=== PATIENT | male | born 1960 | race Caucasian/White ===

== ENCOUNTER 2016-02-17 16:23 | Emergency (ER) | payer SELFPAY ==
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
[2016-02-17 16:40] VITALS: PULSE 80; RESP 14; TEMP 98.4
[2016-02-17 16:42] VITALS: BP 133/89; O2SAT 94
== END 2016-02-17 16:42 | disposition home or self-care (01) ==
LOC: EDUNIT#
DX: S00.31XA Abrasion of nose, initial encounter (principal); F17.200 Nicotine dependence, unspecified, uncomplicated; Y08.89XA Assault by other specified means, initial encounter; Y93.89 Activity, other specified

== ENCOUNTER 2016-02-29 17:40 | Emergency (ER) | payer MEDICAID ==
[2016-02-29 17:47] VITALS: TEMP 97.9
--- NOTE | 2016-02-29 18:04 | EDPHY ---
H & P Time Seen by Provider: 02/29/16 17:49 HPI/ROS: CHIEF COMPLAINT: "my whole right side hurts HISTORY OF PRESENT ILLNESS: Patient is a 55-year-old male with a history of alcohol abuse who presents to the emergency department after fall. He states he fell onto his right side. Now complains of entire right-sided upper body discomfort. States if you do line from my middle everything to the right hurts. EMS reported kidney pain. Patient denies any flank discomfort at this time. No shortness of breath. No abdominal pain. No nausea or vomiting. Patient denies headache or neck pain. The patient does state he drank alcohol earlier today. REVIEW OF SYSTEMS: My complete review of systems is negative except as mentioned in the HPI. Past Medical/Surgical History: Alcohol abuse, chronic back pain Smoking Status: Current every day smoker Physical Exam: Vitals noted GENERAL: Well-appearing, in no acute distress, alert. HEAD: No evidence of trauma. EYES: PERRLA, EOMI, normal to inspection. ENT: Airway intact, no dental or oral injury, no malocclusion, no hemotympanum , normal external examination. NECK: The trachea is midline. There is no crepitus. The C-spine is nontender. C-collar in place. RESPIRATORY: Clear to auscultation bilaterally, no rales, rhonchi or wheezing. There is no crepitus or palpable rib fractures. CVS: Regular rate and rhythm, no rubs, murmurs, or gallops. Chest: The patient has mild right lateral chest wall tenderness palpation. There is no crepitus or deformity. ABDOMEN: Soft, nontender, nondistended, normal bowel sounds, no bruising or abrasions. Pelvis: Stable. No tenderness palpation. Hips full range of motion. BACK: Normal to inspection, no spinal tenderness, no spinal step off, no notable bruising or abrasions. SKIN: Normal color, warm, dry. No pallor or diaphoresis. EXTREMITIES: Right upper extremity: Mild tenderness palpation over the right deltoid. No scapular or clavicle tenderness. Patient has range of motion of his right shoulder. Neurovascular intact distally. Left upper extremity: Atraumatic. No visible signs of trauma. No tenderness palpation. Neurovascular intact distally. Right lower extremity: Atraumatic. No visible signs of trauma. No tenderness palpation. Neurovascular intact distally. Left lower extremity: Atraumatic. No visible signs of trauma. No tenderness palpation. Neurovascular intact distally. Atraumatic, neurovascularly intact distally in all extremities, pelvis is stable , hips with full range of motion, moves all extremities freely. NEURO/PSYCH: Alert and oriented x 3, GCS 15, normal mood and affect, normal motor sensory exam. Not significantly intoxicated appearing. Constitutional: Initial Vital Signs Temperature (C) 36.6 C 02/29/16 17:45 Heart Rate 82 02/29/16 17:45 Respiratory Rate 14 02/29/16 17:45 Blood Pressure 130/97 H 02/29/16 17:45 O2 Sat (%) 94 02/29/16 17:45 O2 Delivery Mode Room Air O2 (L/minute) 2 Allergies/Adverse Reactions: ARTIFICIAL ADRENALINE Allergy (Severe, Uncoded 02/29/16 17:45) SEIZURE Home Medications: Medication Instructions Recorded No Medications [NO HOME 1 e[place] [facility] [place]ICATIONS] Hydrocodone/APAP 5/325 [[place] 1 - 2 each PO Q6 PRN #20 tab 04/27/15 5/325] Hydrocodone/APAP 5/325 [[place] 1 - 2 tab PO Q4 #9 tab 02/29/16 5/325 (RX)] Medical Decision Making ED Course/Re-evaluation: In the emergency department I discussed possible etiologies with the patient. A right shoulder x-ray and chest x-ray were ordered. I did not feel the patient needs CT imaging of his kidney. He denies any flank pain or discomfort. No abdominal pain. No nausea or vomiting. Chest x-ray: The patient has multiple right-sided rib fractures. Please refer the dictated report by the radiologist. I reviewed the images. No pneumothorax or hemothorax. Right shoulder x-ray: Normal. Please refer the dictated report by the radiologist. I personally reviewed the images. Discussed the result with the patient. I answered all his questions. Patient was given instruction on incentive spirometry use. Patient ambulated the bathroom well. He was not unsteady. His pain was controlled. 2100: The patient is doing well. No respiratory distress. Able to ambulate well. Patient was given a prescription for Vicodin. He will be discharged to the [facility]. Differential Diagnosis: My differential includes but is not limited to shoulder contusion, shoulder fracture, shoulder dislocation, rib fracture, chest wall contusion, hemothorax, pneumothorax, renal hematoma - Data Points Medications Given: Discontinued Medications Chlordiazepoxide (Librium 25 Mg Prepack#6) 1 btl TAKEHOME EDNOW ONE Stop: 02/29/16 21:05 Last Admin: 02/29/16 21:08 Dose: 1 btl Departure - Departure Disposition: Home, Routine, Self-Care Clinical Impression: Chest wall pain Chest wall contusion Qualifiers: Encounter type: initial encounter Laterality: right Qualifier Code: (S20.211A) Contusion of right front wall of thorax, initial encounter Rib fracture Qualifiers: Encounter type: initial encounter Rib fracture type: multiple ribs Fracture type: closed Laterality: right Qualifier Code: (S22.41XA) Multiple fractures of ribs, right side, initial encounter for closed fracture Condition: Good Instructions: Chlordiazepoxide/Clidinium (By mouth), Rib Fracture (ED) Additional Instructions: You have multiple rib fractures on the right. Use your incentive spirometer. Take your pain medication as directed. Return with worsening symptoms. Referrals: [facility] [Outside] - As per Instructions Prescriptions: Hydrocodone/APAP 5/325 [[place] 5/325 (RX)] 1 - 2 tab PO Q4 #9 tab
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
[2016-02-29] MEDS ORDERED: CHLORDIAZEPOXIDE 25MG PREPK#6 BTL TAKEHOME ONE (21:04)
[2016-02-29 21:06] VITALS: PULSE 78; RESP 16
[2016-02-29 21:16] VITALS: BP 134/75; O2SAT 94
== END 2016-02-29 21:16 | disposition home or self-care (01) ==
LOC: EDUNIT#
DX: S22.41XA Multiple fractures of ribs, right side, initial encounter for closed fracture (principal); S20.211A Contusion of right front wall of thorax, initial encounter; F17.200 Nicotine dependence, unspecified, uncomplicated; W19.XXXA Unspecified fall, initial encounter

== ENCOUNTER 2016-03-03 22:13 | Emergency (ER) | payer MEDICAID ==
[2016-03-03] MEDS ORDERED: IBUPROFEN 600 MG TAB PO ONE (22:31)
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
[2016-03-03 23:20] VITALS: BP 154/97; PULSE 92; RESP 18; TEMP 97.5; O2SAT 94
== END 2016-03-03 23:55 | disposition home or self-care (01) ==
LOC: EDUNIT#
DX: S90.31XA Contusion of right foot, initial encounter (principal); I10 Essential (primary) hypertension; F17.200 Nicotine dependence, unspecified, uncomplicated; V03.10XA Pedestrian on foot injured in collision with car, pick-up truck or van in traffic accident, initial encounter; Y92.410 Unspecified street and highway as the place of occurrence of the external cause
CPT/HCPCS: L4386

== ENCOUNTER 2017-04-22 19:15 | Emergency (ER) | payer MEDICAID ==
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
[2017-04-22 19:24] VITALS: BP 143/110; PULSE 110; RESP 18; TEMP 98.6; O2SAT 94
[2017-04-22] MEDS ORDERED: CHLORDIAZEPOXIDE 25MG PREPK#6 BTL TAKEHOME ONE (19:30)
== END 2017-04-22 19:48 | disposition home or self-care (01) ==
LOC: EDUNIT#
DX: F10.920 Alcohol use, unspecified with intoxication, uncomplicated (principal); I10 Essential (primary) hypertension; F17.200 Nicotine dependence, unspecified, uncomplicated

== ENCOUNTER 2017-04-25 20:43 | Emergency (ER) | payer MEDICAID ==
--- NOTE | 2017-04-25 20:53 | EDPHY ---
H & P Time Seen by Provider: 04/25/17 20:43 HPI/ROS: CHIEF COMPLAINT: Fall HISTORY OF PRESENT ILLNESS: Patient is a 56-year-old male who presents emergency department after slipping and falling on his left hip. He states he landed directly on his left hip. He has severe left hip pain. He is able to stand but it causes him discomfort. No numbness or tingling. Patient denies striking his head. He did not lose consciousness. No neck or back pain. The patient states he fell 3 days ago and was diagnosed with a right foot fracture. Is currently wearing a Steve boot. REVIEW OF SYSTEMS: My complete review of systems is negative except as mentioned in the HPI. Past Medical/Surgical History: Past medical history: Denies Past surgical history: Denies Social history: The patient drinks alcohol. He is homeless. Smoking Status: Current every day smoker Physical Exam: Vitals noted GENERAL: Well-appearing, in no acute distress, alert. HEENT: Eyes normal to inspection, normal pharynx, no signs of dehydration. No head trauma. NECK: [No thyromegaly, no lymphadenopathy, supple. No spinal tenderness RESPIRATORY: Clear to auscultation bilaterally, no rales, rhonchi or wheezing. CVS: Regular rate and rhythm, no rubs, murmurs, or gallops. ABDOMEN: Soft, nontender, nondistended, no organomegaly. BACK: Normal to inspection, no CVA tenderness. SKIN: Normal color, no rash, warm, dry. No pallor. EXTREMITIES: Left hip tenderness palpation. No deformity. No pedal edema. Legs are equal length. He has no discomfort with flexion, extension or rotation of his hip. No calf tenderness, no Homans sign or cords, no joint swelling. NEURO/PSYCH: Alert and oriented x3, normal mood and affect, normal motor sensory exam. No obvious cranial nerve deficit. Constitutional: Initial Vital Signs Temperature (C) 36.7 C 04/25/17 20:52 Heart Rate 85 04/25/17 20:52 Respiratory Rate 16 04/25/17 20:52 Blood Pressure 173/108 H 04/25/17 20:52 O2 Sat (%) 95 04/25/17 20:52 O2 Delivery Mode Room Air Allergies/Adverse Reactions: ARTIFICIAL ADRENALINE Allergy (Severe, Uncoded 04/22/17 19:23) SEIZURE Home Medications: Medication Instructions Recorded NK [No Known Home Meds] 04/22/17 Medical Decision Making - Diagnostics Imaging Results: Imaging Impressions Hip X-Ray 04/25/17 20:55 Impression: No acute abnormality seen about the pelvis with attention left hip. ED Course/Re-evaluation: In the emergency department I discussed possible etiologies with the patient. I answered all his questions. An x-ray of his left hip was ordered. Left hip x-ray: Please refer the dictated report. No acute disease noted. I discussed the results with the patient. I answered all his questions. He was given warning. Differential Diagnosis: My differential includes but is not limited to fracture, dislocation, contusion , sprain, strain Departure - Departure Disposition: Home, Routine, Self-Care Clinical Impression: Contusion of hip, left Qualifiers: Encounter type: initial encounter Qualified Code(s): S70.02XA - Contusion of left hip, initial encounter Condition: Good Instructions: Contusion in Adults (ED), Hip Sprain (ED) Additional Instructions: X-ray of your hip was negative. Return with worsening symptoms or concerns. Referrals: [facility],. [Clinic] - 3-4 days, if not improved
[2017-04-25] MEDS ORDERED: ACETAMINOPHEN 325 MG TAB ONE (22:28)
[2017-04-25 22:48] VITALS: BP 168/100; PULSE 87; RESP 20; TEMP 98.2; O2SAT 93
== END 2017-04-25 22:35 | disposition home or self-care (01) ==
LOC: EDUNIT#
DX: S70.02XA Contusion of left hip, initial encounter (principal); F17.200 Nicotine dependence, unspecified, uncomplicated; W01.0XXA Fall on same level from slipping, tripping and stumbling without subsequent striking against object, initial encounter

== ENCOUNTER 2017-05-02 10:12 | Emergency (ER) | payer MEDICAID ==
--- NOTE | 2017-05-02 10:23 | EDPHY ---
H & P Time Seen by Provider: 05/02/17 10:14 HPI/ROS: Chief Complaint: Fall, back pain, rib pain HPI: 56-year-old homeless male was drinking vodka this morning when he fell backwards down several stairs, landing on his left back. Patient is complaining of left-sided back and rib pain. He did not hit his head. No loss of consciousness. He was up and ambulating without assistance. Is currently complaining of pain in his left side. He is able to take full breaths. ROS: 10 point Review of Systems is negative except as noted in the HPI. PMH: Denies Social History: Positive smoking, daily heavy alcohol, homeless Family History: non-contributory Physical Exam: Gen: Awake, Alert, Airway Intact HEENT: Head: Atraumatic Eyes: PERRLA, EOMI Nose: No epistaxis Mouth: Normal dentition, Airway patent Face: No deformity Neck: non-tender, no stepoff, Full ROM without pain Chest: Mild left posterior and anterior axillary line tenderness without step- offs or deformities, lungs CTA Heart: normal heart tones Abd: soft, non-tender, atraumatic Pelvis: non-tender, stable to AP and Lateral compression Back: atraumatic, no midline tenderness Ext: atramatic, full ROM Skin: no rash Neuro: CN II-XII intact, Strength 5/5 in all extremities, sensation intact in all extremities - Personal History Tetanus Vaccine Date: <10 yrs - Medical/Surgical History Hx Asthma: No Hx Chronic Respiratory Disease: No Hx Diabetes: No Hx Cardiac Disease: No Hx Renal Disease: No Hx Cirrhosis: No Hx Alcoholism: No Hx HIV/AIDS: No Hx Splenectomy or Spleen Trauma: No Other PMH: chronic back pain, HTN - Social History Smoking Status: Current every day smoker Constitutional: Initial Vital Signs Temperature (C) 36.9 C 05/02/17 10:21 Heart Rate 80 05/02/17 10:21 Respiratory Rate 16 05/02/17 10:21 Blood Pressure 143/115 H 05/02/17 10:21 O2 Sat (%) 92 05/02/17 10:21 O2 Delivery Mode Room Air Allergies/Adverse Reactions: ARTIFICIAL ADRENALINE Allergy (Severe, Uncoded 05/02/17 10:20) SEIZURE Home Medications: Medication Instructions Recorded NK [No Known Home Meds] 03/15/18 Medical Decision Making - Diagnostics Imaging Results: Imaging Impressions Chest X-Ray 05/02/17 10:18 Impression: 1. Acute left fourth, fifth, and sixth rib fractures. 2. Hypoventilation. No pneumothorax. Imaging: I viewed and interpreted images myself ED Course/Re-evaluation: 56-year-old homeless male with rib fractures. Patient is saturating well. Pain is controlled. He has been seen by case management. They have arranged for [facility]. Will discharge with ibuprofen. Patient has been encouraged to discontinue alcohol use which I think is unfortunately unlikely. Will follow up at [facility], return for any concerns. - Data Points Medications Given: Discontinued Medications Ketorolac Tromethamine (Toradol) 15 mg IVP EDNOW ONE Stop: 05/02/17 11:10 Last Admin: 05/02/17 11:29 Dose: Not Given Ketorolac Tromethamine (Toradol) 30 mg IM EDNOW ONE Stop: 05/02/17 11:30 Last Admin: 05/02/17 11:31 Dose: 30 mg Departure - Departure Disposition: Home, Routine, Self-Care Clinical Impression: Rib fractures, Alcohol intoxication Condition: Good Instructions: Rib Fracture (ED), Alcohol Intoxication (ED) Additional Instructions: Follow up at the [facility] in 2-3 days for further evaluation. You may take ibuprofen, 400 mg every 6-8 hours as needed for pain. Return to the emergency department for increasing pain, shortness of breath, productive cough, fevers, chills, or any other concerns. Referrals: [facility],. [Clinic] - As per Instructions
[2017-05-02] MEDS ORDERED: KETOROLAC 15 MG/1 ML SDV IVP ONE (11:09)
[2017-05-02] MEDS ORDERED: KETOROLAC 30 MG/1 ML SDV IM ONE (11:29)
[2017-05-02 12:26] VITALS: BP 147/92; PULSE 93; RESP 18; TEMP 98.1; O2SAT 93
--- NOTE | 2017-05-02 14:07 | ASMTLACE ---
CAROLE Acuity / Level of Answers: No Care: Did the patient have an inpatient admission? Comorbidities - select Answers: History of falls all that apply # of Emergency department Answers: 3-4 visits in the last 6 months Social determinants Answers: History of substance abuse (ETOH, street drugs, prescription drugs, etc.) Homelessness (street, halfway) Lack of community resources and/or lack of social support (no pcp, lives alone, transportation, elissa d) Score: 16 Date Signed: 05/02/2017 02:06 PM Electronically Signed By:Jolene Beauchamp RN
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
--- NOTE | 2017-05-02 17:36 | ASMTCMCOM ---
CM Note CM Note Notes: Received a call back from [facility] ([phone]) and apparently patient is suspended from staying at the residential until he follows up with the [facility] Director. Staff were able to connect with patient today and schedule him an appt with the Director this Wed. 05/05. Per staff, as long as patient attends the meeting, patient can then start being allowed to stay at the residential again. [facility] provided pt with a bus pass in order to get to the [facility] this evening. CM to follow up with [facility] tomorrow. Date Signed: 05/02/2017 05:36 PM Electronically Signed By:Jolene Beauchamp RN
== END 2017-05-02 13:12 | disposition home or self-care (01) ==
LOC: EDUNIT#
DX: S22.42XA Multiple fractures of ribs, left side, initial encounter for closed fracture (principal); F10.129 Alcohol abuse with intoxication, unspecified; I10 Essential (primary) hypertension; F17.200 Nicotine dependence, unspecified, uncomplicated; W10.9XXA Fall (on) (from) unspecified stairs and steps, initial encounter; Y99.8 Other external cause status; Y93.89 Activity, other specified
CPT/HCPCS: J1885

== ENCOUNTER 2017-05-03 09:59 | Emergency (ER) | payer MEDICAID ==
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
[2017-05-03 11:34] VITALS: BP 146/96; PULSE 96; RESP 18; TEMP 98.4; O2SAT 94
--- NOTE | 2017-05-03 15:39 | ASMTCMCOM ---
CM Note CM Note Notes: Pt presented to the ED after a bystander called 911 because they saw him lying near the [place]. Patient was sleeping on the ground with a sleeping bag. Spoke with patient and we discussed how he is suspended from the [facility] until he completes an appointment with the [facility] Director, which is scheduled for 05/05/17 at 8:00 or 8:30am. Pt has completed Coordinated Entry and was referred to [facility]. When asked why he didn't use the bus pass to get to the [facility] to [facility] last night (bus pass was provided to him from [facility] last night after they realized his suspension), pt stated "they said it wasn't open." Pt also stated he drank alcohol last night. Pt has no new complaints during this ED visit. When offered a pair of extra socks, patient said he has an extra pair, along with another pair of pants, in his backpack. Printed out the address, a map, and bus trip plans for patient to get to the [facility] that is located at [facility]. We also discussed at length the importance of him staying indoors [facility] and tomorrow night ([facility]) since weather is expected to be inclement and he will not be able to stay at [facility] until Wed night at the earliest (if he makes his appt). Called [facility] and spoke christian/Jacklyn Valdez ([phone]). Scheduled an appointment for tomorrow Wednesday05/04/17 with an arrival time of 12pm. This CM and the pt discussed at length and on multiple occasions, when and where the appt is and how important is for him to go. Patient verbally expresses understanding of importance, time and location of appt. Patient provided print-outs of maps, bus trip options, etc. This CM also asked to speak to Ilsa Homeless Outreach RN at but Ilsa is on vacation and no one is available covering for her. Jacklyn Valdez recommended reaching out to IVETTE Hoover Tanning Wheel Operator at [facility] ([phone]); spoke w/ Sneha and she said since patient hasn't been seen by since 2010 and he has an appt tomorrow with there is nothing additional she can provide at this time but if PC sees pt tomorrow and thinks he would be a better fit at [facility] ([facility]) then they will refer him at that time. Spoke with Gin with [facility] and asked that patient be screened for Medicaid since patient said he doesn't have it. Gin said pt has active Medicaid. This CM then called [facility] to see if patient is eligible for a Medicaid cab. [facility] staff said patient needs to have a "Medical Certification of Transportation Services" completed before he is able to schedule rides for scheduled appointments (pt was explained this process and provided the [facility] # to call in the future). This form can be completed by his PCP at [facility]. As for today, [facility] was able to authorize the cab since the cab would be for discharge transport. Pt requested to discharge cab take him to [facility]. [facility] authorized this drop off location (CONF# [id number]). Pt provided a bus pass (pt originally requested only a bus pass) so he can get to the [facility] this evening. Pt was able to get himself dressed. Pt still has [place] boot on right foot (for foot fracture re:04/22/17 ED visit) and crutches. Patient is able ambulate well with crutches. Patient asked for assistance with rolling up his sleeping bag and putting it and the backpack into the cab. When asked how he is going to manage it when he gets to the library, etc. pt stated "I'll figure out. Don't worry I've been doing this for awhile." When asked how patient plans on getting to and from [facility] and [facility] tomorrow, pt also stated "I'll make it happen. I'll figure it out." CM available for further assistance. Date Signed: 05/03/2017 03:38 PM Electronically Signed By:Jolene Beauchamp RN
--- NOTE | 2017-05-03 15:41 | ASMTLACE ---
CAROLE Acuity / Level of Answers: No Care: Did the patient have an inpatient admission? Comorbidities - select Answers: History of falls all that apply # of Emergency department Answers: 3-4 visits in the last 6 months Social determinants Answers: History of substance abuse (ETOH, street drugs, prescription drugs, etc.) Homelessness (street, senior living) Lack of community resources and/or lack of social support (no pcp, lives alone, transportation, elissa d) Score: 16 Date Signed: 05/03/2017 03:40 PM Electronically Signed By:Jolene Beauchamp RN
--- NOTE | 2017-05-03 15:44 | ASDISCHSUM ---
Discharge Information Plan Status:Homeless/[facility] Medically Cleared to Leave: Discharge Date:05/03/2017 11:35 AM CM D/C Disposition:Streets (Homeless) ADT D/C Disposition:Home, Routine, Self-Care Projected Discharge Date:05/03/2017 11:35 AM Transportation at D/C:Medicaid Transportation Discharge Delay Reason: Follow-Up Date:05/03/2017 11:35 AM Discharge Slot: Final Diagnosis: Placement Information Patient Contact Information Contact Name:JESSE Relationship: Address: Home Phone: Work Phone: City: Alternate Phone: State/Zip Code: Email: Financial Information Financial Class:Medicaid Primary Plan Desc:MEDICAID HEALTH FIRST [employer]IB [place] Primary Plan Number:[id number] Secondary Plan Desc: Secondary Plan Number: Assessment Information [facility] CM Progress Note CM Note CM Note Notes: Pt presented to the ED after a bystander called 911 because they saw him lying near the [place]. Patient was sleeping on the ground with a sleeping bag. Spoke with patient and we discussed how he is suspended from the [facility] until he completes an appointment with the [facility] Director, which is scheduled for 05/05/17 at 8:00 or 8:30am. Pt has completed Coordinated Entry and was referred to [facility]. When asked why he didn't use the bus pass to get to the [facility] last night (bus pass was provided to him from [facility] last night after they realized his suspension), pt stated "they said it wasn't open." Pt also stated he drank alcohol last night. Pt has no new complaints during this ED visit. When offered a pair of extra socks, patient said he has an extra pair, along with another pair of pants, in his backpack. Printed out the address, a map, and bus trip plans for patient to get to the [facility] that is located at [facility]. We also discussed at length the importance of him staying indoors [facility] and tomorrow night ([facility]) since weather is expected to be inclement and he will not be able to stay at [facility] until Wed night at the earliest (if he makes his appt). Called [facility] and spoke w/Jacklyn Valdez ([phone]). Scheduled an appointment for tomorrow Wednesday05/04/17 with an arrival time of 12pm. This CM and the pt discussed at length and on multiple occasions, when and where the appt is and how important is for him to go. Patient verbally expresses understanding of importance, time and location of appt. Patient provided print-outs of maps, bus trip options, etc. This CM also asked to speak to Ilsa Homeless Outreach RN at but Ilsa is on vacation and no one is available covering for her. Jacklyn Valdez recommended reaching out to Sneha RN Agriculturist at [facility] ([phone]); spoke w/ Sneha and she said since patient hasn't been seen by since 2010 and he has an appt tomorrow with there is nothing additional she can provide at this time but if sees pt tomorrow and thinks he would be a better fit at [facility] ([facility]) then they will refer him at that time. Spoke with Gin with [facility] and asked that patient be screened for Medicaid since patient said he doesn't have it. Gin said pt has active Medicaid. This CM then called [facility] to see if patient is eligible for a Medicaid cab. [facility] staff said patient needs to have a "Medical Certification of Transportation Services" completed before he is able to schedule rides for scheduled appointments (pt was explained this process and provided the [facility] # to call in the future). This form can be completed by his PCP at [facility]. As for today, [facility] was able to authorize the cab since the cab would be for discharge transport. Pt requested to discharge cab take him to [facility]. [facility] authorized this drop off location (CONF# [id number]). Pt provided a bus pass (pt originally requested only a bus pass) so he can get to the [facility] this evening. Pt was able to get himself dressed. Pt still has [place] boot on right foot (for foot fracture re:04/22/17 ED visit) and crutches. Patient is able ambulate well with crutches. Patient asked for assistance with rolling up his sleeping bag and putting it and the backpack into the cab. When asked how he is going to manage it when he gets to the library, etc. pt stated "I'll figure out. Don't worry I've been doing this for awhile." When asked how patient plans on getting to and from [facility] and [facility] tomorrow, pt also stated "I'll make it happen. I'll figure it out." CM available for further assistance. Date Signed: 05/03/2017 03:38 PM Electronically Signed By:Jolene Beauchamp RN LACE LACE Acuity / Level of Answers: No Care: Did the patient have an inpatient admission? Comorbidities - select Answers: History of falls all that apply # of Emergency department Answers: 3-4 visits in the last 6 months Social determinants Answers: History of substance abuse (ETOH, street drugs, prescription drugs, etc.) Homelessness (street, intermediate) Lack of community resources and/or lack of social support (no pcp, lives alone, transportation, elissa d) Score: 16 Date Signed: 05/03/2017 03:40 PM Electronically Signed By:Jolene Beauchamp RN Intervention Information Intervention Type:Health Clinic Date of Service:05/03/2017 03:40 PM Patient Type:Emergency Room Staff Member:IVETTE Beauchamp [place] Hours:0.5 Discipline:Vocal Teacher Severity: Comment:[facility] appt Intervention Type:Transportation Date of Service:05/03/2017 03:40 PM Patient Type:Emergency Room Staff Member:IVETTE Beauchamp [place] Hours:0.5 Discipline:Vocal Teacher Severity: Comment:Medicaid cab arranged Intervention Type:Bus Pass Date of Service:05/03/2017 03:40 PM Patient Type:Emergency Room Staff Member:IVETTE Beauchamp [place] Hours:0.25 Discipline:Vocal Teacher Severity: Comment:for pt to use to get to [facility] tonight Intervention Type:Community Resources Date of Service:05/03/2017 03:40 PM Patient Type:Emergency Room Staff Member:IVETTE Beauchamp [place] Hours:0.5 Discipline:Vocal Teacher Severity: Comment:Various resource lists given and expla ined Intervention Type:Financial Counseling Date of Service:05/03/2017 03:40 PM Patient Type:Emergency Room Staff Member:IVETTE Beauchamp [place] Hours:0.25 Discipline:Vocal Teacher Severity: Comment:[employer] consult for Medicaid screening Intervention Type:Substance Abuse Treatment Date of Service:05/03/2017 03:40 PM Patient Type:Emergency Room Staff Member:IVETTE Beauchamp [place] Hours:0.25 Discipline:Vocal Teacher Severity: Comment:discussed ETOH use and reiterated opti ons for treatment
--- NOTE | 2017-05-04 19:46 | ASMTCMCOM ---
CM Note CM Note Notes: 05/04/17: Followed up with [facility] today and patient did not make it to his 12pm appt. Confirmed that patient information and situation has been passed along to Homeless Outreach RN Ilsa in case patient does start staying at the group home again. (See previous note for info). Called [facility] ([phone]) to see if they came into contact with patient at the [facility] last night. Spoke with Bela, a staff member there and also at [facility], and she states she is very familiar with patient. To her knowledge, [facility] doesn't keep track of who stays at the [facility] nightly so they aren't sure if he stayed there last night. Bela also wanted to make sure we knew that pt is not simply "suspended" from [facility], he actually received a Halfway Ban almost 10 years ago and so in order for him to possible stay at [facility] (which he was referred to through [facility]) he will have to attend a readmission interview with [facility]'s Director, Riley Guerra. Pt said he has an appt with him tomorrow morning. Followup with [facility] to see if patient made it to that appt and is [facility] approved for him to start staying there again. Otherwise, patient can stay at [facility] locations ONLY when [facility] criteria is met. This CM also reached out to Joselin Allison RN with [facility] ([phone]) to see if there were any other options for reaching patient out in the community. Joselin to get back to CM after looking into it further. If/When patient returns contact [facility] to see if pt can stay there. Contact Joselin with [facility] to see if she has any other options if patient enrolls in their services. See if has a day-of open appt and if so, schedule it and Medicaid cab pt directly to appt. Date Signed: 05/04/2017 07:46 PM Electronically Signed By:Jolene Beauchamp RN
== END 2017-05-03 11:35 | disposition home or self-care (01) ==
LOC: EDUNIT#
DX: S22.49XD Multiple fractures of ribs, unspecified side, subsequent encounter for fracture with routine healing (principal); F17.200 Nicotine dependence, unspecified, uncomplicated; I10 Essential (primary) hypertension; Z71.6 Tobacco abuse counseling; X58.XXXD Exposure to other specified factors, subsequent encounter

== ENCOUNTER 2017-05-16 00:05 | Emergency (ER) | payer MEDICAID ==
--- NOTE | 2017-05-16 00:32 | EDPHY ---
General Time Seen by Provider: 05/16/17 00:25 Narrative: CHIEF COMPLAINT: Left rib pain, fall HISTORY OF PRESENT ILLNESS: Patient presents with complaints of left rib pain status post fall. He said an hour and a half ago he slipped on the ice because of his crutches. He states he landed on his left side on the concrete. This is where he had recent rib fractures. Complains of severe pain, but he is not taking the pain medication he has on him. He denies head strike or loss of consciousness. No headache. No neck pain. No generalized chest pain. No back, abdominal or extremity injuries. He has a right ankle fracture in a [place] boot was not injury from the fall. No other associated complaints or modifying factors. REVIEW OF SYSTEMS: Ten systems reviewed and are negative unless otherwise noted in the HPI PCP: [facility] SPECIALISTS: None PAST MEDICAL HISTORY: Recent rib fractures with atelectasis versus pneumonia, chronic back pain, hypertension, right ankle fracture PAST SURGICAL HISTORY: No recent surgeries SOCIAL HISTORY: Homeless. Occasional cigarette use. Occasional alcohol use. Occasional marijuana use. Does not work FAMILY HISTORY: Noncontributory EXAMINATION General Appearance: Alert, no distress, unkempt Head: normocephalic, atraumatic Eyes: Pupils equal and round, no conjunctival pallor or injection ENT, Mouth: Mucous membranes moist. Airway widely patent Neck: Normal inspection, supple, non-tender. No crepitus or deformity Respiratory: Lungs are clear to auscultation. No wheezing rhonchi or crackles. There is splinting with inspiration. No paradoxical movements of the chest. Cardiovascular: Regular rate and rhythm. No murmur Gastrointestinal: Abdomen is soft and nontender Back: non-tender, no bony abnormalities Neurological: GCS 15 A&O, nonfocal, normal gait Skin: Warm and dry, no rash. No petechiae or purpura. No ecchymosis, laceration or puncture over the area of injury. Extremities: Right ankle is in a [place] boot any asked me to leave this in place. Range of motion of extremities symmetric with exception of right ankle not tested. Psychiatric: Mood and affect normal DIFFERENTIAL DIAGNOSES: Including but not limited to rib fracture, rib contusion, pneumothorax, hemothorax, sternal fracture, pulmonary contusion MDM: 12:40 a.m. Reported mechanical fall with left-sided blunt trauma rib pain. No head or neck injury or pain. No abdominal pain. His vital signs are within normal limits. He has a subacute right ankle fracture that was not aggravated. He has a complicated history with recent admission to this hospital for multiple rib fractures on the left side. He is in no acute distress. He is not taking the pain medications that he has in his bag was prescribed 2 days ago. Chest x- ray is pending. 1:10 a.m. Chest x-ray reviewed with Dr. Gallagher. Rib fractures present with no pneumothorax appreciated. Poor inspiratory effort 1:15 a.m. I have re-evaluated the patient. He was not particularly reassured by his lack of acute findings on the chest x-ray. We discussed that he should be taking his pain medication as prescribed by previous physician should he have pain. He has not taking any but will not tell me why. He says that he does still have the pain medication. We discussed [facility] as he was previously instructed to do so. We discussed orthopedic follow-up for his right ankle fracture. We discussed ED precautions. He is discharged in stable condition. SUPERVISION: Patient was independently examined, but I discussed the case with my secondary supervising physician Dr. Gallagher - History Smoking Status: Current every day smoker - Objective Vital Signs: Initial Vital Signs Temperature (C) 98.4 F 05/16/17 00:11 Heart Rate 80 05/16/17 00:11 Respiratory Rate 16 05/16/17 00:11 Blood Pressure 152/99 H 05/16/17 00:11 O2 Sat (%) 92 05/16/17 00:11 O2 Delivery Mode Room Air Allergies/Adverse Reactions: ARTIFICIAL ADRENALINE Allergy (Severe, Uncoded 05/05/17 06:51) SEIZURE Home Medications: Medication Instructions Recorded Ondansetron Odt [Zofran Odt 4 mg 4 mg PO Q4HRS PRN #7 tab 05/14/17 (*)] oxyCODONE IR [Oxycodone Ir (*)] 5 - 10 mg PO Q6 PRN #50 tab 05/14/17 Departure - Departure Disposition: Home, Routine, Self-Care Clinical Impression: Contusion of rib on left side Qualifiers: Encounter type: initial encounter Qualified Code(s): S20.212A - Contusion of left front wall of thorax, initial encounter Ribs, multiple fractures Qualifiers: Encounter type: subsequent encounter Fracture type: closed Laterality: left Fracture healing: with routine healing Qualified Code(s): S22.42XD - Multiple fractures of ribs, left side, subsequent encounter for fracture with routine healing Condition: Good Instructions: Rib Fracture (ED), Rib Contusion (ED) Additional Instructions: 1. Continue taking your previous oxycodone prescription as prescribed 2. You need to contact your primary care physician at [facility] for outpatient follow-up 3. You need to contact your previous orthopedist for management of the right ankle fractures 4. ED precautions for worsening pain, fever or difficulty breathing Referrals: [facility],. [Clinic] - As per Instructions
[2017-05-16 01:24] VITALS: BP 126/80
== END 2017-05-16 01:26 | disposition home or self-care (01) ==
LOC: EDUNIT#
DX: S20.212A Contusion of left front wall of thorax, initial encounter (principal); S22.42XD Multiple fractures of ribs, left side, subsequent encounter for fracture with routine healing; F17.210 Nicotine dependence, cigarettes, uncomplicated; W00.0XXA Fall on same level due to ice and snow, initial encounter

== ENCOUNTER 2017-07-22 19:29 | Emergency (ER) | payer MEDICAID ==
--- NOTE | 2017-07-22 19:46 | EDPHY ---
H & P Source: Patient Exam Limitations: No limitations - Personal History Tetanus Vaccine Date: <10 yrs - Medical/Surgical History Hx Asthma: No Hx Chronic Respiratory Disease: No Hx Diabetes: No Hx Cardiac Disease: No Hx Renal Disease: No Hx Cirrhosis: No Hx Alcoholism: No Hx HIV/AIDS: No Hx Splenectomy or Spleen Trauma: No Other PMH: chronic back pain, HTN, rib and r ankle fx 04/2017 - Social History Smoking Status: Current every day smoker Time Seen by Provider: 07/22/17 19:40 HPI/ROS: HPI: This is a 57-year-old male who presents with Chief Complaint: ETOH, R leg pain (previous injury) Location: Right lower leg Quality: Pain Duration: 30 min to 1 hr prior to arrival Signs and Symptoms: No bleeding, no radiation, no numbness, no weakness, no tingling, no incontinence, no decreased range of motion, no swelling, + pain, no fever Timing: Acute Severity: Moderate Context: Patient reports that he accidentally fell down this afternoon and felt a popping sensation in his right lower leg. He is currently wearing a walking boot as he sustained a fracture he said several weeks ago. He reports that he had x-rays performed at [facility]. He reports that he is ambulatory without any deficits. He does admit to drinking alcohol today. Denies LOC/head injury/neck pain/dizziness/nausea/vomiting/amnesia. Denies any paresthesias, decreased range of motion. Modifying Factors: None Comment: ROS: see HPI Constitutional: No fever, no chills, no weight loss Eyes: No blurred vision Respiratory: No shortness of breath, no cough Cardiovascular: No chest pain Gastrointestinal: No nausea, no vomiting no diarrhea Genitourinary: No dysuria Extremities: No myalgias Neurologic: No weakness, no numbness Skin: No rashes Hematologic: No bruising, no bleeding MEDICAL/SURGICAL/SOCIAL HISTORY: Medical history: chronic back pain, HTN, rib and right ankle fx 04/2017, alcoholism Surgical history: Denies Social history: Homeless. Current every day smoker. CONSTITUTIONAL: Elderly intoxicated middle-aged male who appears younger than stated age, awake and alert, no obvious distress HEENT: Atraumatic and normocephalic. NECK: supple, no midline tenderness, flexion 45 degrees, extension 45 degrees, right and left lateral flexion 45 degrees. No meningismus. Cardiovascular: Normal S1/S2, regular rate, regular rhythm, without murmur rub or gallop. PULMONARY/CHEST: Symmetrical and nontender. no crepitus. Clear to auscultation bilaterally. Good air movement. No accessory muscle usage. ABDOMEN: Soft, nondistended, nontender, no ecchymosis. PELVIC: no pain with rocking; bilateral hips flexion 125 degrees, extension 30 degrees, with no pain internal rotation and no pain external rotation. BACK: No midline tenderness, no paraspinous spasm, deep tendon reflexes 2/2, no pain with straight leg raise, No foot drop. Achilles reflexes are equal bilaterally. Able to walk on heels and toes without difficulty. EXTREMITIES: 2/2 pulses, strength 5/5, right KNEE: no effusion, no medial and lateral joint line tenderness, full extension to 180, flexion to 120. No pain with varus and valgus exam. No pain with anterior drawer or posterior drawer test. DIP/PIP/MCP flexion/extension intact with good light touch sensation. no deformities, no clubbing, no cyanosis or edema. NEUROLOGICAL: no focal neuro deficits. GCS 15. Light touch sensation intact. SKIN: Warm and dry, no erythema. no rash. Good capillary refill. (Bernard,Wilbura) Constitutional: Initial Vital Signs Temperature (C) 36.6 C 07/22/17 19:30 Heart Rate 80 07/22/17 19:30 Respiratory Rate 19 07/22/17 19:30 Blood Pressure 110/70 07/22/17 19:30 O2 Sat (%) 88 L 07/22/17 19:30 O2 Delivery Mode Room Air O2 (L/minute) 3 Allergies/Adverse Reactions: ARTIFICIAL ADRENALINE Allergy (Severe, Uncoded 07/22/17 19:39) SEIZURE Home Medications: Medication Instructions Recorded Ondansetron Odt [Zofran Odt 4 mg 4 mg PO Q4HRS PRN #7 tab 05/14/17 (*)] oxyCODONE IR [Oxycodone Ir (*)] 5 - 10 mg PO Q6 PRN #50 tab 05/14/17 Medical Decision Making - Diagnostics Imaging Results: Imaging Impressions Foot X-Ray 07/22/17 19:46 Impression: No evidence for acute osseous abnormality right foot. Tibia/Fibula X-Ray 07/22/17 19:46 Impression: No evidence for acute osseous abnormality right tibia and fibula. ED Course/Re-evaluation: I did not see this patient while he was in the emergency department. However his care was discussed with the PA while the patient was in the department. I agree with treatment plan and management (Tye Anderson) Right tib-fib x-ray, right foot x-ray ordered My read shows no signs of fracture, dislocation Reassured patient that there are no signs of fracture that are seen on x-ray imaging. No signs of neurovascular compromise/tenting of skin/compartment syndrome/ extremities and joints examined above and below area of concern and are neurovascularly intact. Patient is ambulatory at discharge without deficits. No ataxia noted and does not meet M1 hold or detainer criteria. This patient was seen under the supervision of my secondary supervising physician. I evaluated care for this patient independently. Discussed this patient with Dr. Anderson who did not see the patient. (Guadalupe Wagner) Differential Diagnosis: Differential diagnosis includes but is not limited to knee sprain, tibia fracture, fibula fracture, midfoot fracture. (Guadalupe Wagner) Departure - Departure Disposition: Home, Routine, Self-Care Clinical Impression: Injury of right lower extremity Qualifiers: Encounter type: initial encounter Qualified Code(s): S89.91XA - Unspecified injury of right lower leg, initial encounter Alcohol intoxication Qualifiers: Complication of substance-induced condition: uncomplicated Qualified Code(s): F10.920 - Alcohol use, unspecified with intoxication, uncomplicated Condition: Good Instructions: Contusion in Adults (ED) Additional Instructions: Take Tylenol 650 mg every 4 hours and/or Ibuprofen 600 mg every 8 hours with food as needed for pain. Apply ice for 30 minutes at a time; 2-3 times per day for the next 1-2 days. Continue to use walking boot as needed for comfort until pain free. The x-rays obtained in the emergency department today demonstrate no evidence of an obvious fracture. Sometimes fractures are not obvious on the initial set of x-rays performed in the ED. For this reason, you should have repeat x-rays performed in 7-10 days if you are having any pain exclude the possibility of an occult fracture. Referrals: [facility],. [Clinic] - 5-7 days, if not improved
[2017-07-22 20:35] VITALS: BP 106/68
== END 2017-07-22 20:34 | disposition home or self-care (01) ==
LOC: EDUNIT#
DX: S89.91XA Unspecified injury of right lower leg, initial encounter (principal); F10.920 Alcohol use, unspecified with intoxication, uncomplicated; F17.200 Nicotine dependence, unspecified, uncomplicated; I10 Essential (primary) hypertension; W19.XXXA Unspecified fall, initial encounter

== ENCOUNTER 2018-02-17 18:50 | Emergency (ER) | payer MEDICAID, OTHER ==
--- NOTE | 2018-02-17 18:58 | EDPHY ---
HPI/HX/ROS/PE/MDM Narrative: CHIEF COMPLAINT:Medical clearance HPI: The patient is a 57-year-old male with long history of alcoholism and frequent emergency departments related to same. He was brought to the emergency department in the custody of [facility] after being arrested at a local restaurant. He was apparently stealing drinks and was quite intoxicated. Upon arrest, the patient states that his right leg is broken in three places and accused [employer] of stealing his cast. REVIEW OF SYSTEMS: Unable to obtain secondary to alcohol intoxication. PMH: Alcoholism. SOCIAL HISTORY: Homeless. Alcoholic. PHYSICAL EXAM: General: Patient is appears severely intoxicated. Smells of alcohol. ENT: Eyes are normal to inspection. ENT inspection normal. Pupils are mid position and reactive bilaterally. Neck: Normal inspection. Full range of motion. Respiratory: No respiratory distress. Breath sounds normal bilaterally. Cardiovascular: Regular rate and rhythm. Normal heart sounds. Neuro: No focal motor or sensory deficits. Extremities: Bilateral lower extremities are nontender to palpation. No signs of trauma. ED Course: I reviewed the patient's chart both in our system and on [facility] There is no evidence of any recent hospital visit related to traumatic injury. The patient does have a history of leg fracture noted back in April of last year. As the patient's physical exam is not consistent with acute leg injury, I think he is safe for discharge to [facility]. General Time Seen by Provider: 02/17/18 18:55 Initial Vital Signs: Initial Vital Signs Temperature (C) 36.4 C 02/17/18 18:56 Heart Rate 59 L 02/17/18 18:56 Respiratory Rate 16 02/17/18 18:56 Blood Pressure 105/66 02/17/18 18:56 O2 Sat (%) 93 02/17/18 18:56 O2 Delivery Mode Room Air Allergies/Adverse Reactions: ARTIFICIAL ADRENALINE Allergy (Severe, Uncoded 07/22/17 19:39) SEIZURE Home Medications: Medication Instructions Recorded Ondansetron Odt [Zofran Odt 4 mg 4 mg PO Q4HRS PRN #7 tab 05/14/17 (*)] oxyCODONE IR [Oxycodone Ir (*)] 5 - 10 mg PO Q6 PRN #50 tab 05/14/17 Departure - Departure Disposition: Home, Routine, Self-Care Condition: Good Instructions: Abuse of Alcohol (ED) Additional Instructions: Patient is medically clear for [facility]. Referrals: Patient,NotPresent [Unknown] - As per Instructions
[2018-02-17 19:00] VITALS: BP 105/66
== END 2018-02-17 19:24 | disposition home or self-care (01) ==
LOC: EDUNIT#
DX: F10.10 Alcohol abuse, uncomplicated (principal)

== ENCOUNTER 2018-03-06 20:59 | Emergency (ER) | payer MEDICAID ==
--- NOTE | 2018-03-06 22:08 | EDPHY ---
H & P Stated Complaint: ETOH, Right LE Pain - Personal History Current Tetanus Diphtheria and Acellular Pertussis (TDAP): Yes Tetanus Vaccine Date: <10 yrs - Medical/Surgical History Hx Asthma: No Hx Chronic Respiratory Disease: No Hx Diabetes: No Hx Cardiac Disease: No Hx Renal Disease: No Hx Cirrhosis: No Hx Alcoholism: No Hx HIV/AIDS: No Hx Splenectomy or Spleen Trauma: No Other PMH: chronic back pain, HTN, rib and r ankle fx 04/2017 - Social History Smoking Status: Current every day smoker Time Seen by Provider: 03/06/18 21:09 HPI/ROS: CHIEF COMPLAINT: "My leg is broken" HISTORY OF PRESENT ILLNESS: 57-year-old homeless male history of alcoholism arrives via ambulance after he was found sleeping outside stating that he is leg was broken. He was unwilling or unable to bear weight on the right lower extremity. He also stated that he had fallen his occipital head with positive loss of consciousness, Was placed in pre-hospital cervical collar immobilization. Patient denies peripheral paresthesia, weakness, numbness, denies midline C-spine pain. He is unable provide any history of when he may have fallen. He was noted to have a He admits to positive alcohol use this evening. He denies: Head injury, neck pain injury, back pain injury, fever, chills, dyspnea, assault. REVIEW OF SYSTEMS: 10 systems reviewed and negative with the exception of the elements mentioned in the history of present illness PAST MEDICAL/SURGICAL HISTORY: Alcoholism. no anticoagulant use, no relevant medical/surgical history . tetanus up-to-date. SOCIAL HISTORY: positive for self disclosed alcohol use. Homeless. PHYSICAL EXAM 1) GENERAL: poorly kept, foul smelling, alert and oriented. Appears to be in no acute distress. Answering questions appropriately. 2) HEAD: Normocephalic, atraumatic, no abrasion laceration 3) HEENT: Pupils equal, round, reactive to light bilaterally. Negative Horners. Nasopharynx, oropharynx, clear. No deformity or angulation of nose. No septal hematoma. No rhinorrhea. No oral trauma. Ears bilaterally with normal tympanic membranes. No hemotympanum. No fluid or blood in the external auditory canal. No raccoon eyes. No Hubbard sign. Teeth are normally aligned with no gross malocclusion, TMJ bilaterally nontender, facial bones nontender including the zygomatic arch, maxilla mandible. 4) NECK: Cervical collar is on.Cervical collar is removed while holding inline traction and patient is unable to completely differentiate between true midline pain versus just lateral of midline pain.Cervical collar is replaced at that point. 5) LUNGS: Clear to auscultation bilaterally, no wheezes, no rhonchi, no retractions. No obvious signs of trauma. No chest wall pain. No flaring, no grunting. Moving symmetrically. No crepitus. 6) HEART: [Regular rate and rhythm, 7) ABDOMEN: No guarding, no rebound, no focal tenderness, no peritoneal signs, no signs of trauma, no ecchymosis 8) MUSCULOSKELETAL: Right lower extremity: No visible trauma, tender to palpation ankle, mid tib-fib as well as foot. Right great toe erythema and eschar with no foul smell. No drainage. No crepitus. No lymphangitic streaking. Otherwise, Moving all extremities, no focal areas of tenderness, no obvious trauma. 9) BACK: No midline vertebral tenderness, no fluctuance, no step-off, no obvious trauma, no visual or palpable abnormality. 10) SKIN: No laceration. No abrasion DIFFERENTIAL DIAGNOSIS: Not necessarily in any particular order, my differential diagnosis includes, but is not limited to, concussion, skull fracture, intraparenchymal contusion, subarachnoid, subdural and epidural hematoma. The patient understands that this diagnosis is provisional and can never be 100% accurate. (Clara Lundberg) Constitutional: Initial Vital Signs Temperature (C) 36.5 C 03/06/18 21:05 Heart Rate 70 03/06/18 21:05 Respiratory Rate 18 03/06/18 21:05 Blood Pressure 155/99 H 03/06/18 21:05 O2 Sat (%) 98 03/06/18 21:05 O2 Delivery Mode Room Air Allergies/Adverse Reactions: ARTIFICIAL ADRENALINE Allergy (Severe, Uncoded 07/22/17 19:39) SEIZURE Home Medications: Medication Instructions Recorded Cephalexin [Keflex] 500 mg PO TID 7 Days cap 03/07/18 Medical Decision Making - Diagnostics Imaging Results: Images reviewed myself (Clara Lundberg) ED Course/Re-evaluation: PHYSICIAN DOCUMENTATION: The patient was evaluated and managed by the Physician S Iron Worker. My co- signature indicates that I have reviewed this chart and I agree with the findings and plan of care as documented. I am the secondary supervising physician. 2:00 a.m.- Patient now is awake and alert, able to walk without difficulty. I reexamined his right great toe. Patient explained that 5 days ago he fell off of a ladder landing on his toe and sustained an abrasion to the medial aspect of it. It then became red and painful and swollen. Some pus drained out of it. He said now it is actually feeling much better though continues to be painful. We obtained an x-ray which demonstrates no obvious fracture. I suspect he has a cellulitis and may have had a paronychia that drained versus an abscess. There is no lymphangitis streaking, there are no systemic signs of illness, I do not think he requires IV antibiotics at this time. He has range of motion of the toe with sensation intact, toe is warm with capillary refill present. We will provide him with a full prescription of Keflex via the [facility] program to go home with. [facility]. I have explained the importance of following up at [facility] if he is not better with our antibiotics. I initially thought this could be frostbite but given his story this sounds to be more likely due to infectious process. (Mary Ann Abebe) 9:15 p.m.: Head CT ordered in this patient for trauma for the following indication: Loss of consciousness and intoxicated 10:51 p.m.: High re-evaluation after discussing negative CT imaging with radiologist. Patient has self-extricated from his cervical collar. 12:19 a.m.: Patient was re-evaluated with serial exams. At This time he is sleeping. He was also seen exam by Dr. Abebe in the ER. He has self- extricated from cervical collar and is resting comfortably. On exam he was noted to have discoloration to his right great toe which is possibly secondary to subacute frostbite which would correlate given his current living conditions and social habits. However he is noted to have some erythema which will may be consistent with early cellulitis and we have recommended initiation of antibiotics with Keflex. Tetanus is already up-to-date. There is no evidence of sandrine osteomyelitis on x-ray of his foot. Doubt necrotizing fasciitis. His foot will need close follow-up the [facility] and I have strongly recommended he establish follow-up there. He has been informed of the consequences in dangers of not following up including, not limited to, loss of digit or extremity. 1:30 a.m.: Care turned over to Dr. Abebe ([facility] - Data Points Medications Given: Discontinued Medications Chlordiazepoxide (Librium 25 Mg Prepack#6) 1 btl TAKEHOME EDNOW ONE Stop: 03/07/18 02:05 Last Admin: 03/07/18 02:25 Dose: 1 btl Departure - Departure Disposition: Home, Routine, Self-Care Clinical Impression: Alcohol intoxication Qualifiers: Complication of substance-induced condition: with unspecified complication Qualified Code(s): F10.929 - Alcohol use, unspecified with intoxication, unspecified Cellulitis Qualifiers: Site of cellulitis: extremity Site of cellulitis of extremity: toe Laterality: right Qualified Code(s): L03.031 - Cellulitis of right toe Condition: Good Instructions: Cephalexin (By mouth), Chlordiazepoxide/Clidinium (By mouth), Cellulitis (ED), Abuse of Alcohol (ED) Referrals: [facility],. [Clinic] - As per Instructions Prescriptions: Cephalexin [Keflex] 500 mg PO TID 7 Days cap
[2018-03-07] MEDS ORDERED: CEPHALEXIN 500 MG CAP PO SCH
[2018-03-07] MEDS ORDERED: CHLORDIAZEPOXIDE 25MG PREPK#6 BTL TAKEHOME ONE (02:04)
[2018-03-07 02:38] VITALS: BP 122/67
== END 2018-03-07 02:37 | disposition home or self-care (01) ==
LOC: EDUNIT#
DX: L03.031 Cellulitis of right toe (principal); F10.929 Alcohol use, unspecified with intoxication, unspecified; Z59.0 Homelessness
CPT/HCPCS: G0480

== ENCOUNTER 2018-03-19 20:14 | Emergency (ER) | payer MEDICAID ==
--- NOTE | 2018-03-19 21:49 | EDPHY ---
H & P Stated Complaint: DROPPED BLOCKS ON FOOT YESTERDAY Time Seen by Provider: 03/19/18 20:30 HPI/ROS: HPI CHIEF COMPLAINT: [ ] HISTORY OF PRESENT ILLNESS: [Need 4: Location, Duration, Severity, Quality, Context, Timing Modifying Factors, Associated S&S] Past Medical History: Past Surgical History: Social History: Family History: ROS REVIEW OF SYSTEMS: 10 Systems were reviewed and negative with the exception of the elements mentioned in the history of present illness. Exam Constitutional triage nursing summary reviewed, vital signs reviewed, awake/ alert. Eyes normal conjunctivae and sclera, EOMI, PERRLA. HENT normal inspection, atraumatic, moist mucus membranes, no epistaxis, neck supple/ no meningismus, no raccoon eyes. Respiratory clear to auscultation bilaterally, normal breath sounds, no respiratory distress, no wheezing. Cardiovascular rate normal, regular rhythm, no murmur, no edema, distal pulses normal. Gastrointestinal soft, non-tender, no rebound, no guarding, normal bowel sounds, no distension, no pulsatile mass. Genitourinary no CVA tenderness. Musculoskeletal no midline vertebral tenderness, full range of motion, no calf swelling, no tenderness of extremities, no meningismus, good pulses, neurovascularly intact. Skin pink, warm, & dry, no rash, skin atraumatic. Neurologic awake, alert and oriented x 3, AAOx3, moves all 4 extremities equally, motor intact, sensory intact, CN II-XII intact, normal cerebellar, normal vision, normal speech. Psychiatric normal mood/affect. Heme/Lymph/Immune no lymphadenopathy. Differential Diagnosis: Medical Decision Making: Re-evaluation: Source: Patient - Personal History Current Tetanus/Diphtheria Vaccine: Yes Current Tetanus Diphtheria and Acellular Pertussis (TDAP): Yes Tetanus Vaccine Date: <10 yrs - Medical/Surgical History Hx Asthma: No Hx Chronic Respiratory Disease: No Hx Diabetes: No Hx Cardiac Disease: No Hx Renal Disease: No Hx Cirrhosis: No Hx Alcoholism: No Hx HIV/AIDS: No Hx Splenectomy or Spleen Trauma: No Other PMH: chronic back pain, HTN, rib and r ankle fx 04/2017 - Social History Smoking Status: Current every day smoker Constitutional: Initial Vital Signs Temperature (C) 36.6 C 03/19/18 20:42 Heart Rate 90 03/19/18 20:42 Respiratory Rate 18 03/19/18 20:42 Blood Pressure 156/78 H 03/19/18 20:42 O2 Sat (%) 97 03/19/18 20:42 O2 Delivery Mode Room Air Allergies/Adverse Reactions: ARTIFICIAL ADRENALINE Allergy (Severe, Uncoded 03/19/18 20:44) SEIZURE Home Medications: Medication Instructions Recorded Cephalexin [Keflex (*)] 500 mg PO QID 03/19/18 Departure - Departure Referrals: NONE *PRIMARY CARE P,. [Primary Care Provider] - As per Instructions
--- NOTE | 2018-03-19 22:24 | EDPHY ---
H & P Stated Complaint: DROPPED BLOCKS ON FOOT YESTERDAY Time Seen by Provider: 03/19/18 20:30 HPI/ROS: HPI The patient presents with bilateral foot pain right greater than left present for the last 2 days. Patient says that a concrete brick fell 2 stories and landed on both of his feet. He is having difficulty walking because of this. He says he was out in cold weather 2 days ago as well and thinks he may have frostbite. He has not had fevers or chills. He denies any numbness or tingling of the toes. He is able to move them.. He was in the emergency department on March 06 with toe pain and alcohol intoxication. At that time he told me his toes were bothering him after he fell down a ladder. He had a normal x-ray and was started on Keflex for R great toe cellulitis. REVIEW OF SYSTEMS 10 systems were reviewed and negative with the exception of the elements mentioned in the history of present illness. PMHx: Hypertension Soc Hx: Homeless, chronic alcohol abuse, cigarette smoker PHYSICAL General Appearance: Alert, no distress Eyes: Pupils equal and round no pallor or injection ENT, Mouth: Mucous membranes moist Respiratory: Breathing comfortably Neurological: A&O, moves all extremities Skin: Warm and dry, no rashes Musculoskeletal: Right great toe is dusky with lateral ulceration which is superficial present, the toe itself is warm, sensation is intact to light touch and T has full range of motion, there is no lymphangitic streaking Extremities: symmetrical, full range of motion Psychiatric: Patient is oriented X 3, there is no agitation Source: Patient Exam Limitations: No limitations - Personal History Current Tetanus/Diphtheria Vaccine: Yes Current Tetanus Diphtheria and Acellular Pertussis (TDAP): Yes Tetanus Vaccine Date: <10 yrs - Medical/Surgical History Hx Asthma: No Hx Chronic Respiratory Disease: No Hx Diabetes: No Hx Cardiac Disease: No Hx Renal Disease: No Hx Cirrhosis: No Hx Alcoholism: No Hx HIV/AIDS: No Hx Splenectomy or Spleen Trauma: No Other PMH: chronic back pain, HTN, rib and r ankle fx 04/2017 - Social History Smoking Status: Current every day smoker Constitutional: Initial Vital Signs Temperature (C) 36.6 C 03/19/18 20:42 Heart Rate 90 03/19/18 20:42 Respiratory Rate 18 03/19/18 20:42 Blood Pressure 156/78 H 03/19/18 20:42 O2 Sat (%) 97 03/19/18 20:42 O2 Delivery Mode Room Air Allergies/Adverse Reactions: ARTIFICIAL ADRENALINE Allergy (Severe, Uncoded 03/19/18 20:44) SEIZURE Home Medications: Medication Instructions Recorded Cephalexin [Keflex (*)] 500 mg PO QID 03/19/18 Medical Decision Making - Diagnostics Imaging Results: X-ray right great toe shows no fracture, no dislocation, interpreted by me, radiology interpretation is pending. Tib-fib three view shows no fracture, no dislocation, interpreted by me, radiology interpretation is pending. Imaging: I viewed and interpreted images myself Differential Diagnosis: 57-year-old homeless man presents with bilateral foot pain right greater than left for the last several days, he says since being out in the cold and having a concrete brick drop on both of his feet. He was seen here on March 06 with similar complaint and started on Keflex which he says he is taking. I do appreciate some progression of the appearance of his right great toe as compared to his prior visit when I saw him before. It is somewhat concerning that he is not improved with Keflex. Unfortunately due to his homelessness, poor foot hygiene, cigarette smoking and alcohol abuse, he is at risk for poor wound healing. He is unable to walk much at this time which is concerning. Plan for x-rays to evaluate for osteomyelitis. I do not think he has acute limb ischemia given full range of motion of the toe, warmth, sensation intact. He may have suffered from frostbite over the last few days, , however denies any exposures in the last 24 hr, thus not a candidate for any aggressive treatments for this. Patient's labs were unremarkable. X-rays were normal. I suspect frostbite. I consulted with Dr. Lopez, on-call general surgeon who recommends warm socks and follow up in wound care. The patient may eventually require debridement, however at this time given no signs of infection, not necessary. The patient was discharged much to his sugar in. He requested admission to the hospital, however I have not found a reason for admission. Security was required escort him out. - Data Points Laboratory Results: Laboratory Results 03/19/18 23:11 03/19/18 23:11 03/19/18 03/19/18 23:11 23:11 WBC 9.38 10^3/uL 10^3/uL (3.80-9.50) RBC 4.39 10^6/uL L 10^6/uL (4.40-6.38) Hgb 14.1 g/dL g/dL (13.7-17.5) Hct 40.7 % % (40.0-51.0) MCV 92.7 fL fL (81.5-99.8) MCH 32.1 pg pg (27.9-34.1) MCHC 34.6 g/dL g/dL (32.4-36.7) RDW 14.2 % % (11.5-15.2) Plt Count 291 10^3/uL 10^3/uL (150-400) MPV 10.1 fL fL (8.7-11.7) Neut % (Auto) 77.1 % H % (39.3-74.2) Lymph % (Auto) 15.8 % % (15.0-45.0) [place] % (Auto) 6.4 % % (4.5-13.0) Eos % (Auto) 0.1 % L % (0.6-7.6) Baso % (Auto) 0.2 % L % (0.3-1.7) Nucleat RBC Rel Count 0.0 % % (0.0-0.2) Absolute Neuts (auto) 7.23 10^3/uL H 10^3/uL (1.70-6.50) Absolute Lymphs (auto) 1.48 10^3/uL 10^3/uL (1.00-3.00) Absolute Monos (auto) 0.60 10^3/uL 10^3/uL (0.30-0.80) Absolute Eos (auto) 0.01 10^3/uL L 10^3/uL (0.03-0.40) Absolute Basos (auto) 0.02 10^3/uL 10^3/uL (0.02-0.10) Absolute Nucleated RBC 0.00 10^3/uL 10^3/uL (0-0.01) Immature Gran % 0.4 % % (0.0-1.1) Immature Gran # 0.04 10^3/uL 10^3/uL (0.00-0.10) ESR 16 MM/HR MM/HR (0-20) Sodium 137 mEq/L mEq/L (135-145) Potassium 4.4 mEq/L mEq/L (3.5-5.2) Chloride 108 mEq/L mEq/L (97-110) Carbon Dioxide 20 mEq/l L mEq/l (22-31) Anion Gap 9 mEq/L mEq/L (6-14) BUN 11 mg/dL mg/dL (7-23) Creatinine 0.6 mg/dL L mg/dL (0.7-1.3) Estimated GFR > 60 Glucose 88 mg/dL mg/dL (70-100) Calcium 7.9 mg/dL L mg/dL (8.5-10.4) C-Reactive Protein < 5.0 mg/L mg/L (<10.0) Departure - Departure Disposition: Home, Routine, Self-Care Clinical Impression: Frostbite of great toe Qualifiers: Encounter type: initial encounter Laterality: right Qualified Code(s): T33.831A - Superficial frostbite of right toe(s), initial encounter Condition: Good Instructions: Frostbite (ED) Additional Instructions: You should follow up with the wound clinic as listed below. Please make sure to wear warm socks daily. Referrals: [facility] [Clinic] - As per Instructions [facility],. [Clinic] - As per Instructions
[2018-03-19 22:29] VITALS: BP 116/76
[2018-03-19 23:21] LABS: PLATELET COUNT 291 10^3/uL (150-400)
--- NOTE | 2018-03-20 10:31 | ASMTCAGE ---
CAGE Additional Comments Patient in ED last night. Chart reviewed and ML with Ilsa STEELE, homeless outreach Date Signed: 03/20/2018 10:31 AM Electronically Signed By:Viviana Childers RN
== END 2018-03-20 00:27 | disposition home or self-care (01) ==
LOC: EDUNIT# → EDBD
DX: T33.831A Superficial frostbite of right toe(s), initial encounter (principal); X31.XXXA Exposure to excessive natural cold, initial encounter; I10 Essential (primary) hypertension; F17.200 Nicotine dependence, unspecified, uncomplicated; F10.10 Alcohol abuse, uncomplicated; Z59.0 Homelessness

== ENCOUNTER 2018-03-24 15:20 | Inpatient (IN) | payer MEDICAID ==
--- NOTE | 2018-03-24 15:25 | EDPHY ---
General - History Smoking Status: Current every day smoker Time Seen by Provider: 03/24/18 15:25 Narrative: CLINICAL IMPRESSION: Right great toe pain ASSESSMENT/PLAN: Patient is a 57-year-old male who is homeless, medical history of hypertension, presents with worsening pain and darkening of his right great toe since seen and evaluated on the 19 of March. Patient is afebrile, not toxic appearing and in no acute distress. He is clinically intoxicated on arrival. Physical examination reveals a dusky right great toe extending into the forefoot, ulceration and callus noted on the medial aspect of the great toe with associated pallor, decreased sensation distally; no appreciable warmth, erythema or lymphangitis. Patient with history of traumatic injury and cold exposure to this great toe. His vital signs were reviewed, no findings to suggest sepsis. CBC revealed no evidence of leukocytosis, sed rate was normal at 17. Metabolic panel, C reactive protein and hemoglobin A1c are still pending at this time. With progression of this wound and concern for osteomyelitis and possible ischemia proceeded with MRI with and without contrast. Remaining laboratory studies and MRI results are pending, plan will be for formal consultation by Dr. Adorno in the emergency department. This case was discussed with Dr. Anderson who will resume care of this patient at this time. The patient remained hemodynamically stable and his neurovascular status unchanged under my care. DIFFERENTIAL DX: Differential diagnosis includes but not limited to osteomyelitis, ischemic toe, infectious process, traumatic injury, frostbite ED COURSE: 1541: Case discussed with Dr. Adonro with General surgery. He agrees with above plan for baseline laboratory studies an MRI, requested adding on hemoglobin A1c. He will evaluate this patient after we receive more clinical data. 1700: Case discussed with Dr. Anderson who will resume care of this patient at this time. Patient is currently in MRI obtaining his imaging. CHIEF COMPLAINT: Right great toe pain HPI: Patient is a 57-year-old male who is homeless who presents with worsening pain in his right foot. Patient reports he was seen and evaluated in the emergency department several days prior, was sent home with antibiotics which he completed 3 days ago, he has noted some increased darkening and increased pain of his right great toe. He is now experiencing pain into the foot and up the leg which he states is different than before. Patient endorses a remote injury where a brick was dropped onto both of his feet, that is when he started to notice most of his pain. He has not been staying in the intermediate, he has been living on the streets and has had significant cold exposures. He reports increased difficulty with ambulation secondary to the pain. He has felt chilled however has had no subjective fevers. He feels the sensation is mildly decreased at the tip of his toe. In reviewing his records he was seen on the March 06 and March 19 with acute alcohol intoxication and complaints of toe pain. Laboratory studies were obtained which revealed no evidence of leukocytosis, and x-ray with no findings to suggest osteomyelitis. General surgery was verbally consulted with recommendations for outpatient wound care. Records also reflected some objective progression of the appearance of his right great toe from March 06 to March 19. PAST MEDICAL HISTORY: Chronic alcohol abuse, hypertension Family History: Noncontributory Social History: Homeless, chronic alcohol abuse, marijuana, cigarette smoker ROS: A full 10 point review of systems was negative except for those mentioned in HPI. PHYSICAL EXAM: General Appearance: Unkempt, intoxicated, not toxic-appearing. HEENT: TMs are clear bilaterally, no evidence of serous or mucopurulent otitis. Oropharynx clear is no erythema or exudates, no tonsillar hypertrophy or asymmetry. Eyes: PERRLA, no acute vision change, nystagmus, swelling, discharge, pain or photosensitivity. Conjunctiva pink, no pallor or injection Neck: Supple, nontender, no lymphadenopathy, no midline pain, FROM, no meningismus. Respiratory: There are no retractions, lungs are clear to auscultation. Cardiac: Regular rate and rhythm, no murmurs or gallops. Gastrointestinal: Abdomen is soft, nontender, bowel sounds normal, no masses/ hernia, no rigidity, guarding or focal peritoneal findings. Skin: Warm, dry, no rashes, no nodules on palpation. Upper Extremities: Right great toe is dusky with an ulceration noted on the medial aspect and large callus. Duskiness extends into the forefoot. Patient with associated tenderness to palpation. Sensation is intact to light touch distally, he does have full range of motion. The toe is warm. Severe onychomycosis. Intact distal pulses, Full range of motion intact, no tenderness, no ecchymosis or edema Lower Extremities: Intact distal pulses, No edema, No tenderness, No cyanosis, full range of motion intact, No calf tenderness bilaterally. MEDICAL DECISION MAKING: Patient was seen independently. Secondary supervising physician at time of evaluation was Dr. Anderson. Diagnosis: Right great toe pain, chronic wound. New, requires workup Summary: See Assessment and Plan for summary of ED visit Clinical lab tests: ordered / reviewed. Independent visualization of images, tracing, or specimens: No. Decision to obtain medical records or history from someone other than the patient: Yes, EMS Review / Summarize previous medical records: Yes Discussed patient with another provider: Yes, Dr. Anderson and Dr. Adorno Patient Progress: Stable, dispo pending. (Rose Radford) Medical Decision Making: I saw the patient at 6:10 a.m. After MRI results. Patient and I discussed laboratory and imaging studies. I consulted and discussed case with Dr. Adorno who will see the patient in the emergency department I consulted discussed case with Dr. Gilbert for Infectious Disease. He will see The patient in the hospital tomorrow. I consulted discussed case with Dr. Richmond, hospitalist who agrees to the admission IV unyson (Tye Anderson) - Diagnostics Imaging Results: Imaging Impressions Lower Extremity MRI 03/24/18 15:46 Impression: Osteomyelitis and surrounding cellulitis of the distal phalanx of the great toe. MRI lower extremity shows osteomyelitis and surrounding cellulitis (Tye Anderson) - Objective Vital Signs: Initial Vital Signs Temperature (C) 36.7 C 03/24/18 15:24 Heart Rate 76 03/24/18 15:24 Respiratory Rate 16 03/24/18 15:24 Blood Pressure 137/92 H 03/24/18 15:24 O2 Sat (%) 95 03/24/18 15:24 O2 Delivery Mode Nasal Cannula O2 (L/minute) 100 Allergies/Adverse Reactions: ARTIFICIAL ADRENALINE Allergy (Severe, Uncoded 03/19/18 20:44) SEIZURE Home Medications: Medication Instructions Recorded Cephalexin [Keflex (*)] 500 mg PO QID 03/19/18 Laboratory Results: Laboratory Results 03/24/18 16:26 03/24/18 16:26 03/24/18 03/24/18 03/24/18 16:26 16:26 16:26 WBC 5.40 10^3/uL 10^3/uL (3.80-9.50) RBC 4.75 10^6/uL 10^6/uL (4.40-6.38) Hgb 15.1 g/dL g/dL (13.7-17.5) Hct 44.9 % % (40.0-51.0) MCV 94.5 fL fL (81.5-99.8) MCH 31.8 pg pg (27.9-34.1) MCHC 33.6 g/dL g/dL (32.4-36.7) RDW 15.0 % % (11.5-15.2) Plt Count 298 10^3/uL 10^3/uL (150-400) MPV 9.7 fL fL (8.7-11.7) Neut % (Auto) 64.0 % % (39.3-74.2) Lymph % (Auto) 25.0 % % (15.0-45.0) [place] % (Auto) 9.1 % % (4.5-13.0) Eos % (Auto) 0.6 % % (0.6-7.6) Baso % (Auto) 0.7 % % (0.3-1.7) Nucleat RBC Rel Count 0.0 % % (0.0-0.2) Absolute Neuts (auto) 3.46 10^3/uL 10^3/uL (1.70-6.50) Absolute Lymphs (auto) 1.35 10^3/uL 10^3/uL (1.00-3.00) Absolute Monos (auto) 0.49 10^3/uL 10^3/uL (0.30-0.80) Absolute Eos (auto) 0.03 10^3/uL 10^3/uL (0.03-0.40) Absolute Basos (auto) 0.04 10^3/uL 10^3/uL (0.02-0.10) Absolute Nucleated RBC 0.00 10^3/uL 10^3/uL (0-0.01) Immature Gran % 0.6 % % (0.0-1.1) Immature Gran # 0.03 10^3/uL 10^3/uL (0.00-0.10) ESR 17 MM/HR MM/HR (0-20) Sodium 139 mEq/L mEq/L (135-145) Potassium 3.8 mEq/L mEq/L (3.5-5.2) Chloride 108 mEq/L mEq/L (97-110) Carbon Dioxide 19 mEq/l L mEq/l (22-31) Anion Gap 12 mEq/L mEq/L (6-14) BUN 11 mg/dL mg/dL (7-23) Creatinine 0.7 mg/dL mg/dL (0.7-1.3) Estimated GFR > 60 Glucose 83 mg/dL mg/dL (70-100) Hemoglobin A1c 5.2 % % (4.0-6.0) Estim Average Glucose 103 mg/dL mg/dL (68-126) Calcium 8.9 mg/dL mg/dL (8.5-10.4) Total Bilirubin 0.6 mg/dL mg/dL (0.1-1.4) AST 99 IU/L H IU/L (17-59) ALT 72 IU/L IU/L (21-72) Alkaline Phosphatase 150 IU/L H IU/L (38-126) C-Reactive Protein < 5.0 mg/L mg/L (<10.0) Total Protein 7.6 g/dL g/dL (6.3-8.2) Albumin 4.4 g/dL g/dL (3.5-5.0) Medications Given: Discontinued Medications Morphine Sulfate (Morphine) 4 mg IVP EDNOW ONE Stop: 03/24/18 17:59 Last Admin: 03/24/18 18:10 Dose: 4 mg Morphine Sulfate (Morphine) 5 mg IVP EDNOW ONE Stop: 03/24/18 18:34 Last Admin: 03/24/18 18:42 Dose: 5 mg Departure - Departure Disposition: [facility] Clinical Impression: Osteomyelitis Qualifiers: Osteomyelitis type: unspecified type Osteomyelitis location: foot Laterality: right Qualified Code(s): M86.9 - Osteomyelitis, unspecified Condition: Good Referrals: NONE *PRIMARY CARE P,. [Primary Care Provider] - As per Instructions
[2018-03-24 16:41] LABS: PLATELET COUNT 298 10^3/uL (150-400)
[2018-03-24] MEDS ORDERED: GADOBUTROL 10 ML VIAL IVP ONE (16:46)
[2018-03-24] MEDS ORDERED: morphINE 10 MG/0.5 ML UDSYR ONE (18:36)
[2018-03-24] MEDS ORDERED: AMPICILLIN/SULBACTAM 3 GM in NS 100 ML IV ONE (19:48)
--- NOTE | 2018-03-24 20:14 | GHP ---
[f rep st] CONSULTATION DATE OF ADMISSION: 03/24/2018 CONSULTATION REQUESTED BY: Dr. Tye Anderson. Erick Ware is a person of the street who has visited the ER several times in the last couple weeks. Today he presents with pain in his right great toe. He is not a diabetic. He does smoke tobacco. On examining his right great toe , which has osteo by MRI, there is a large malformed toenail with subungual fungus. This was carefully trimmed back. There was no obvious infection. There is no skin breakdown. His capillary refill is excellent. I recommend that we push his O2 sats to 98% . He will elevate his right lower extremity at all times. He will use Bactroban on the nail bed, as it will penetrate intact eschar, and I will ask for medicine admission and antibiotic therapy directed towards osteomyelitis. As the great toe was important for 95% of the push off with walking, and that is important to him, I would suggest we try antibiotic therapy to see if we can save the toe. /[id number]/MODL MTDD
[2018-03-24] MEDS ORDERED: ONDANSETRON 4 MG/2 ML VIAL IVP PRN (21:12)
[2018-03-24] MEDS ORDERED: ONDANSETRON DISINTEGRATING 4 MG TAB PO PRN (21:12)
--- NOTE | 2018-03-24 21:21 | PDGENHP ---
History and Physical - Chief Complaint toe pain - History of Present Illness 57 yo homeless male with h/o etoh abuse presents to ED with right great toe pain. He says about a week ago he dropped a cinder block on his foot. However , he also notes he has had pain in his toe for nearly 2 weeks, so it sounds like it pre-dates the trauma from the cinder block. He denies fevers or chills. He is having difficulty walking so came to the ED. He denies CP, SOB, abdominal pain, N/V/D. No changes in his bowel or bladder habits. No recent antibiotics. He is not diabetic. He drinks beers and shots daily. Denies h/o withdrawal or seizures. In the ED, imaging revealed e/o osteomyelitis of great toe. Surgery and ID consults were obtained. He is afebrile, has a normal wbc count, nl esr and crp. He was started on Unasyn and is admitted for further management. History Information - Allergies/Home Medication List Allergies/Adverse Reactions: ARTIFICIAL ADRENALINE Allergy (Severe, Uncoded 03/24/18 20:11) SEIZURE Home Medications: NK [No Known Home Meds] 03/24/18 [Last Taken Unknown] I have personally reviewed and updated: family history, medical history, social history, surgical history - Past Medical History hypertension Additional medical history: Rib fractures on the left. Previous trauma with maxillary and zygomatic fractures. Subdural hematoma, subarachnoid hemorrhage - Surgical History Reports: no pertinent surgical hx - Family History Additional family history: No family history of venous thromboembolism, his sibling has alcoholism and polysubstance abuse - Social History Smoking Status: Current every day smoker Alcohol Use: Heavy Additional social history: Polysubstance abuse history including IV drugs, heroin, cocaine, marijuana, currently homeless and reportedly not welcome at the homeless group home, previous case management arrangements have been made at the [facility], but the patient has been non adherent to meeting the contact at the [facility] Review of Systems Review of Systems: ROS: 10pt was reviewed & negative except for what was stated in HPI & below Physical Exam Physical Exam: Temp Pulse Resp BP Pulse Ox 36.9 C 87 16 132/69 H 95 03/24/18 18:20 03/24/18 18:20 03/24/18 18:20 03/24/18 18:20 03/24/18 18:20 Constitutional: no apparent distress Eyes: PERRL Ears, Nose, Mouth, Throat: moist mucous membranes Cardiovascular: regular rate and rhythym Respiratory: no respiratory distress, clear to auscultation Gastrointestinal: normoactive bowel sounds, soft, non-tender abdomen Skin: warm Musculoskeletal: full muscle strength, other (right great toe appears macerated s/p partial toenail removal, +discoloration, no purulence, 2+ pulses) Neurologic: AAOx3 Psychiatric: interacting appropriately Lab Data & Imaging Review 03/24/18 16:26 03/24/18 16:26 WBC 5.40 10^3/uL (3.80-9.50) 03/24/18 16:26 RBC 4.75 10^6/uL (4.40-6.38) 03/24/18 16:26 Hgb 15.1 g/dL (13.7-17.5) 03/24/18 16:26 Hct 44.9 % (40.0-51.0) 03/24/18 16:26 MCV 94.5 fL (81.5-99.8) 03/24/18 16:26 MCH 31.8 pg (27.9-34.1) 03/24/18 16:26 MCHC 33.6 g/dL (32.4-36.7) 03/24/18 16:26 RDW 15.0 % (11.5-15.2) 03/24/18 16:26 Plt Count 298 10^3/uL (150-400) 03/24/18 16:26 MPV 9.7 fL (8.7-11.7) 03/24/18 16:26 Neut % (Auto) 64.0 % (39.3-74.2) 03/24/18 16:26 Lymph % (Auto) 25.0 % (15.0-45.0) 03/24/18 16:26 [place] % (Auto) 9.1 % (4.5-13.0) 03/24/18 16:26 Eos % (Auto) 0.6 % (0.6-7.6) 03/24/18 16:26 Baso % (Auto) 0.7 % (0.3-1.7) 03/24/18 16:26 Nucleat RBC Rel Count 0.0 % (0.0-0.2) 03/24/18 16:26 Absolute Neuts (auto) 3.46 10^3/uL (1.70-6.50) 03/24/18 16:26 Absolute Lymphs (auto) 1.35 10^3/uL (1.00-3.00) 03/24/18 16:26 Absolute Monos (auto) 0.49 10^3/uL (0.30-0.80) 03/24/18 16:26 Absolute Eos (auto) 0.03 10^3/uL (0.03-0.40) 03/24/18 16:26 Absolute Basos (auto) 0.04 10^3/uL (0.02-0.10) 03/24/18 16:26 Absolute Nucleated RBC 0.00 10^3/uL (0-0.01) 03/24/18 16:26 Immature Gran % 0.6 % (0.0-1.1) 03/24/18 16:26 Immature Gran # 0.03 10^3/uL (0.00-0.10) 03/24/18 16:26 ESR 17 MM/HR (0-20) 03/24/18 16:26 Sodium 139 mEq/L (135-145) 03/24/18 16:26 Potassium 3.8 mEq/L (3.5-5.2) 03/24/18 16:26 Chloride 108 mEq/L (97-110) 03/24/18 16:26 Carbon Dioxide 19 mEq/l (22-31) L 03/24/18 16:26 Anion Gap 12 mEq/L (6-14) 03/24/18 16:26 BUN 11 mg/dL (7-23) 03/24/18 16:26 Creatinine 0.7 mg/dL (0.7-1.3) 03/24/18 16:26 Estimated GFR > 60 03/24/18 16:26 Glucose 83 mg/dL (70-100) 03/24/18 16:26 Hemoglobin A1c 5.2 % (4.0-6.0) 03/24/18 16:26 Estim Average Glucose 103 mg/dL (68-126) 03/24/18 16:26 Calcium 8.9 mg/dL (8.5-10.4) 03/24/18 16:26 Total Bilirubin 0.6 mg/dL (0.1-1.4) 03/24/18 16:26 AST 99 IU/L (17-59) H 03/24/18 16:26 ALT 72 IU/L (21-72) 03/24/18 16:26 Alkaline Phosphatase 150 IU/L (38-126) H 03/24/18 16:26 C-Reactive Protein < 5.0 mg/L (<10.0) 03/24/18 16:26 Total Protein 7.6 g/dL (6.3-8.2) 03/24/18 16:26 Albumin 4.4 g/dL (3.5-5.0) 03/24/18 16:26 Assessment & Plan Assessment: Osteomyelitis (Acute) - right great toe. He may wind up needing amputation. Surgery has evaluated and did partial debridement of toenail and surrounding tissue at bedside. No e/o sepsis. -IV Unasyn -ID was consulted, will see in am -surgery following -pain control, elevate H/O hypertension - currently normotensive -monitor Etoh abuse - denies h/o w/d or seizures. He does not wish to detox. -po beer daily to prevent w/d Homelessness - CM consult DVT PPLX - Lovenox Full code Dispo - inpt, anticipate >48 hrs hospitalization for management of osteomyelitis
[2018-03-24] MEDS ORDERED: hydrALAZINE 10 MG TAB PO PRN (21:25)
[2018-03-24] MEDS: BEER 1 EACH EA PO SCH (21:54)
[2018-03-24] MEDS: MUPIROCIN 2% 22 GM OINT TP SCH (22:14)
[2018-03-25] MEDS ORDERED: AMPICILLIN/SULBACTAM 3 GM in NS 100 ML IV ONE (02:00)
[2018-03-25] MEDS ORDERED: AMPICILLIN/SULBACTAM 3 GM in NS 100 ML IV SCH ×2 (08:00→10:00)
--- NOTE | 2018-03-25 09:03 | PDCONSULT ---
Partner Marketing Manager Note: 03/25/2018 Assessment: Toe looks much better. Good cap refill. It is pink and warm. Plan: Antibiotics per ID. Hope to treat without amputation. Plan to keep foot elevated and push SATs to 98%
--- NOTE | 2018-03-25 09:35 | HOSPPROG ---
Hospitalist Progress Note Assessment/Plan: 57 yo homeless male with h/o etoh abuse presents to ED with right great toe pain. He says about a week ago he dropped a cinder block on his foot. However , he also notes he has had pain in his toe for nearly 2 weeks, so it sounds like it pre-dates the trauma from the cinder block. First encounter, chart reviewed. Reviewed his care w Dr Adorno. *Osteomyelitis (acute to subacute), r great toe -Dr Adorno removed his toenail -on Unasyn, ID to change to Bactrim (closely monitor renal function and K levels ) *H/O hypertension -prn Hydralazine *Etoh abuse - denies h/o w/d or seizures. He does not wish to detox. -po beer daily to prevent w/d *Homelessness - CM consult *nausea and vomiting -during my evaluation this morning, he started vomiting -will place him on fluids, prn Zofran *nicotine dependence -patch ordered *DVT PPLX - Lovenox *plan: repeat labs in a.m., will add prn Librium in case he withdraws, he is on a beer daily Subjective: Oc said his right big toe hurts and is having some nausea. Objective: Vital Signs Temp Pulse Resp BP Pulse Ox 36.8 C 67 144 H 154/104 H 98 03/25/18 09:08 03/25/18 09:08 03/25/18 09:08 03/25/18 09:08 03/25/18 09:08 Laboratory Results 03/25/18 06:20 - Physical Exam Constitutional: chronically ill appearing, unkempt Eyes: PERRL Ears, Nose, Mouth, Throat: hearing normal Cardiovascular: regular rate and rhythym Respiratory: no respiratory distress Gastrointestinal: normoactive bowel sounds Skin: warm, other (right big toe in dressing) Neurologic: AAOx3 ICD10 Worksheet Patient Problems: Problems Problem Status Onset Osteomyelitis Acute Multiple fractures of ribs of left side Acute Pneumonia Acute
[2018-03-25] MEDS: MUPIROCIN 2% 22 GM OINT TP SCH ×3 (09:38→23:16)
--- NOTE | 2018-03-25 09:43 | PDMN ---
Medical Necessity Medical necessity: Pt meets IP criteria as of 03/24/2018 per and MCG M-600 ( Osteomyelitis); est los > 2 mn for ongoing tx and management of osteomyelitis of the R great toe; surgical team would like to trial IV ABX before amputation; pt is homeless with hx ETOH abuse making OP ABX an unreliable plan; requiring infectious disease consultation, surgery consultation, IV ABX, pain control, wound care and case management.
[2018-03-25] MEDS ORDERED: NS 1,000 ML IV SCH (09:45)
[2018-03-25] MEDS: ENOXAPARIN 40 MG/0.4 ML SYR SC SCH (09:47)
[2018-03-25] MEDS: SULFAMETHOX/TMP 800/160 MG 1 TAB PO SCH ×2 (14:41→22:13)
[2018-03-25] MEDS: ACETAMINOPHEN 325 MG TAB PO PRN (14:47)
--- NOTE | 2018-03-25 14:54 | PDCONSULT ---
Fare Collector Note: Infectious Diseases Consult Note Impression: 57-year-old man with right great toe cellulitis, deep soft tissue infection, and likely acute to subacute osteomyelitis. He has no systemic signs or symptoms of uncontrolled infection. He is also tolerating oral intake so we will start oral therapy with Bactrim, as this is a medication that will be more likely to be obtained as an outpatient. Without tick monitor his electrolytes very closely for the 1st 2 days to ensure he tolerates a dose of approximately 10 milligrams/kilogram per day. 1. Right great toe acute to subacute osteomyelitis 2. Right great toe cellulitis and deep soft tissue infection 3. Alcohol abuse 4. Homelessness Plan: 1. Start Bactrim 2 double-strength tablets twice daily; approximately 10 milligrams/kilogram per day 2. Check electrolytes in the morning to ensure no hyperkalemia or GRISELDA Awais Lee MD Infectious Diseases Chief Complaint: Right great toe pain and fever Requesting Provider: Dr. Richmond Reason for Referral: Consultation was requested by Dr. Richmond regarding antimicrobial management. HPI: 57-year-old man who presents to the ED with worsening right foot pain. He also notes that he has had fevers, chills, and night sweats over the past week. 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 He has been seen in the emergency department on 2 occasions prior to this admission, initially on March 06 where he was noted to have an eschar on swelling of the right great toe. He had actually presented at that March 06 ED visit with some change in mentation thought secondary to alcohol intoxication. He was given Keflex x7 days at that initial ED visit which he states he took to completion. He noted may be some improvement in his right great toe pain after taking the antibiotic but no resolution. He also presented the emergency department on March 19, again with right great toe pain which did not appear infected by the exam in the emergency department. He did not take any further antibiotics after that presentation. He notes over the past few days he has had fevers chills and night sweats. And his right great toe pain has become significantly worse. He underwent x-rays of the right foot at each of his ED visits, none of which showed chronic osteomyelitis. He also underwent MRI of his right foot on admission which shows some osseous abnormalities interpreted by me as representing likely acute osteomyelitis with tissue edema and likely overlying cellulitis. He was evaluated by surgery in the emergency department with the goal to manages with antibiotics in an attempt to avoid amputation. He notes no nausea, diarrhea, rash to antibiotics previously, arthralgias, or myalgias. He did have an episode of emesis this morning with water but was able to eat his lunch without nausea or emesis. Past Medical History: No chronic medical conditions that he takes medications Past Surgical History: No previous right foot surgeries Social History: Drinks wine with meals, smoke cigarettes, consumes marijuana via height or joint; no IV drug use. 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 ROS: 10 organ systems reviewed; pertinent positives and negatives listed in the HPI, all other organ systems negative. Physical Exam: VS: Reviewed Gen: No acute distress; Breathing comfortably without exogenous oxygen; Able to speak in complete sentences Eyes: No conjunctival injection; No scleral icterus HENT: No gross deformities Neck: No limitation in range of motion Pulm: Breath sounds clear to the bases bilaterally; No wheeze, rhonchi, or rales CV: Normal S1 and S2; Regular rate and rhythm; No murmurs, rubs, or gallops; No lower extremity edema Abd: Not distended; Normo-active bowel sounds; Soft; Non-tender Skin: A full skin exam including exposed bilateral upper extremities, bilateral lower extremities to the knees, face, neck, abdomen, chest, and back performed; Skin intact, warm, with no rash MSK: Joints without erythema or edema; No gross limitation in range of motion; dressing in place on right great toe not taken down Ext: No clubbing or cyanosis Neuro: Awake and alert Psych: Normal mood and blunted affect Labs/Imaging: All microbiology testing (culture and non-culture) reviewed in the medical record. Personally reviewed and interpreted the images of the following radiographs: Right foot x-rays showing soft tissue edema possible osteomyelitis Medications Generic Name Dose Route Start Last Admin Trade Name Freq PRN Reason Stop Dose Admin Trimethoprim/Sulfamethoxazole 2 ea 03/25/18 13:30 03/25/18 14:41 Bactrim Ds PO 04/24/18 13:29 2 ea BID ON LICENSE OF [facility] Protocol Discontinued Medications Generic Name Dose Route Start Last Admin Trade Name Fremaritza PRN Reason Stop Dose Admin Ampicillin Sodium/Sulbactam 100 mls @ 200 mls/hr 03/24/18 19:48 03/24/18 20: 00 Sodium 3 gm/ Sodium Chloride IV 03/24/18 20:17 100 mls EDNOW ONE Protocol Ampicillin Sodium/Sulbactam 100 mls @ 200 mls/hr 03/25/18 02:00 03/25/18 02: 00 Sodium 3 gm/ Sodium Chloride IV 03/25/18 02:29 100 mls EDNOW ONE Protocol Ampicillin Sodium/Sulbactam 100 mls @ 200 mls/hr 03/25/18 10:00 03/25/18 09: 47 Sodium 3 gm/ Sodium Chloride IV 04/24/18 09:59 100 mls Q6H ON LICENSE OF [facility] Protocol Laboratory Tests 03/24/18 03/24/18 03/25/18 16:26 16:26 06:20 WBC 5.40 Creatinine 0.7 0.6 L AST 99 H 65 H ALT 72 62 Total Protein 7.6 6.0 L Albumin 4.4 3.4 L Ongoing monitoring for antimicrobial toxicity with: CBC, BMP.
--- NOTE | 2018-03-25 15:16 | ASMTLACE ---
CAROLE Acuity / Level of Answers: Yes Care: Did the patient have an inpatient admission? Comorbidities - select Answers: Other Notes: HTN all that apply # of Emergency department Answers: 3-4 visits in the last 6 months Social determinants Answers: History of substance abuse (ETOH, street drugs, prescription drugs, etc.) Homelessness (street, alf) Lack of community resources and/or lack of social support (no pcp, lives alone, transportation, elissa d) Score: 17 Date Signed: 03/25/2018 03:16 PM Electronically Signed By:VERONICA Davison
--- NOTE | 2018-03-25 15:24 | ASMTCMCOM ---
CM Note CM Note Notes: Pt medically stable for d/c to [facility], orders sent in [employer]. IVETTE Harvey to call report. WC transport scheduled by Beatriz at [facility] for 1615. Pt to update family. Date Signed: 03/25/2018 03:24 PM Electronically Signed By:VERONICA Davison
--- NOTE | 2018-03-25 15:27 | ASMTCMCOM ---
CM Note CM Note Notes: please disregard last CM note 03/25/18 15:24 entered in error Date Signed: 03/25/2018 03:27 PM Electronically Signed By:VERONICA Davison
--- NOTE | 2018-03-25 15:31 | ASMTCMCOM ---
CM Note CM Note Notes: Pt who is homeless here for osteomyelitis toe. Pt intoxicated on arrival, does not want to detox and will get beer here. Surgery following, pt may require toe amp. Pt on IV antibiotics, ID consulting. D/c needs TBD Date Signed: 03/25/2018 03:30 PM Electronically Signed By:VERONICA Davison
[2018-03-25] MEDS: NICOTINE 14 MG/24 HR PATCH TD SCH (17:16)
[2018-03-25] MEDS: BEER 1 EACH EA PO SCH (21:56)
[2018-03-25] MEDS: oxyCODONE IR 5 MG TAB PO PRN (22:14)
[2018-03-26] MEDS: oxyCODONE IR 5 MG TAB PO PRN (01:51)
[2018-03-26] MEDS: ENOXAPARIN 40 MG/0.4 ML SYR SC SCH (09:00)
[2018-03-26] MEDS: SULFAMETHOX/TMP 800/160 MG 1 TAB PO SCH ×2 (09:00→23:08)
[2018-03-26] MEDS: NICOTINE 14 MG/24 HR PATCH TD SCH (09:01)
[2018-03-26] MEDS: ACETAMINOPHEN 325 MG TAB PO PRN ×2 (09:01→15:32)
[2018-03-26] MEDS ORDERED: KETOROLAC 30 MG/1 ML SDV IVP PRN (11:16)
--- NOTE | 2018-03-26 11:25 | SOAPPROG ---
SOAP Progress Note Assessment/Plan: 03/26/18 11:19 PAD# 2 Assessment: Complains of continued pain in foot. Erythema now extends proximally to metatarsal head. Will continue O2 sats at 98%, elevation and no nicotine Plan: Will continue O2 sats at 98%, elevation and no nicotine Follow up CBC, ESR, and foot x-ray pending Subjective: It hurts more this morning Objective: Vital Signs Temp Pulse Resp BP Pulse Ox 36.7 C 76 16 135/86 H 97 03/26/18 08:00 03/26/18 08:00 03/26/18 08:00 03/26/18 08:00 03/26/18 08:00 Laboratory Results 03/26/18 04:11 03/25/18 03/26/18 03/27/18 05:59 05:59 05:59 Intake Total 2150 Balance 2150 Physical Exam - Physical Exam Extremities: other (No open wounds on right great toe, Still quite tender, erythema extends on to proximal medial metatarsal.) ICD10 Worksheet Patient Problems: Problems Problem Status Onset Osteomyelitis Acute Multiple fractures of ribs of left side Acute Pneumonia Acute
[2018-03-26] MEDS: MUPIROCIN 2% 22 GM OINT TP SCH ×3 (11:27→23:08)
--- NOTE | 2018-03-26 11:30 | PCMIDPN ---
Assessment/Plan: Assessment: 57-year-old man with right great toe cellulitis and deep soft tissue infection with likely underlying acute to subacute osteomyelitis. He has tolerated Bactrim well at approximately 10 milligrams/kilogram per day with no hyperkalemia developing after the 1st day therapy. He has no GI side effects or contraindication to oral therapy. Bactrim as excellent tissue and bone penetration in addition to excellent absorption from the GI tract. This medication is likely to be obtainable for longer term therapy to ensure resolution of this infection. 1. Right great toe acute subacute osteomyelitis, stable 2. Right great toe cellulitis and deep soft tissue infection 3. Hypoalbuminemia 4. Alcohol abuse 5. Homelessness Plan: 1. Continue Bactrim 2 double-strength tablets twice daily 2. Continue to check locked relates daily to ensure does not develop hyperkalemia 3. Discussed in detail the role of antibiotics in attempting to avoid amputation and potential side effects of Bactrim which include hyperkalemia, increased creatinine, nausea, diarrhea Awais Lee MD Infectious Diseases 03/26/18 11:31 Subjective: No fever or chills since yesterday. Says the pain in his right great toe is improved but not resolved. No rash, no nausea, no diarrhea. Objective: Vital Signs Temp Pulse Resp BP Pulse Ox 36.7 C 76 16 135/86 H 97 03/26/18 08:00 03/26/18 08:00 03/26/18 08:00 03/26/18 08:00 03/26/18 08:00 Laboratory Results 03/26/18 04:11 03/25/18 03/26/18 03/27/18 05:59 05:59 05:59 Intake Total 2150 Balance 2150 ESR 17 MM/HR (0-20) 03/24/18 16:26 C-Reactive Protein < 5.0 mg/L (<10.0) 03/24/18 16:26 Medications Generic Name Dose Route Start Last Admin Trade Name Freq PRN Reason Stop Dose Admin Trimethoprim/Sulfamethoxazole 2 ea 03/25/18 13:30 03/26/18 09:00 Bactrim Ds PO 04/24/18 13:29 2 ea BID [facility] Protocol Laboratory Tests 03/24/18 03/25/18 03/26/18 16:26 06:20 04:11 WBC 5.40 Hgb 15.1 Plt Count 298 ESR 17 Potassium 3.8 4.3 Creatinine 0.6 L 0.7 Total Protein 6.0 L Albumin 3.4 L - Physical Exam General Appearance: no apparent distress, non-toxic EENT: No scleral icterus Respiratory: lungs clear, normal breath sounds, No respiratory distress Neck: full range of motion, supple Cardiac/Chest: regular rate, rhythm, No bradycardia, No tachycardia, No diastolic murmur, No systolic murmur Extremities: other (Right great toe with circumferential swelling, tender to palpation, no active areas of drainage) Abdomen: normal bowel sounds, non-tender, soft, No distended, No guarding Skin: No erythema Neuro/Psych: oriented x 3, depressed affect, No confused - Time Spent With Patient Time Spent with Patient: greater than 25 minutes Time Spent with Patient: Greater than 25 minutes spent on this patients care, greater than 50% of time spent counseling, educating, and coordinating care regarding the above mentioned plan. ICD10 Worksheet Patient Problems: Problems Problem Status Onset Osteomyelitis Acute Multiple fractures of ribs of left side Acute Pneumonia Acute
[2018-03-26 12:42] LABS: PLATELET COUNT 231 10^3/uL (150-400)
--- NOTE | 2018-03-26 21:16 | HOSPPROG ---
Hospitalist Progress Note Assessment/Plan: 57 yo homeless male with h/o etoh abuse presents to ED with right great toe pain and e/o osteomyelitis *Osteomyelitis (acute to subacute), r great toe -Dr Adorno removed his toenail, continued on bactrim, appreciate ID/general surgery *H/O hypertension -prn Hydralazine if needed, bp has been relatively well controlled *Etoh abuse - denies h/o w/d or seizures. He does not wish to detox. -po beer daily to prevent w/d, currently doing well * transaminitis: mild, likely due to alc hep *Homelessness - CM consult *nausea and vomiting -resolved *nicotine dependence -patch ordered *DVT PPLX - Lovenox * IP status * Patient new to my care, old records reviewed summarized as aboe Subjective: patient notes his pain continues to be severe, he states he was told he is not allowed to walk and so has not been walking Objective: Vital Signs Temp Pulse Resp BP Pulse Ox 36.8 C 73 16 123/73 H 98 03/26/18 20:00 03/26/18 20:00 03/26/18 20:00 03/26/18 20:00 03/26/18 20:00 Laboratory Results 03/26/18 04:11 03/26/18 04:11 03/25/18 03/26/18 03/27/18 05:59 05:59 05:59 Intake Total 2150 1200 Balance 2150 1200 awake alert anicteric op clear rrr no mrg cta b soft nt nd no cce warm dry well perfused oriented ICD10 Worksheet Patient Problems: Problems Problem Status Onset Pneumonia Acute Multiple fractures of ribs of left side Acute Osteomyelitis Acute
[2018-03-26] MEDS: BEER 1 EACH EA PO SCH (23:07)
[2018-03-27] MEDS: ACETAMINOPHEN 325 MG TAB PO PRN ×3 (06:28→21:19)
[2018-03-27] MEDS: ENOXAPARIN 40 MG/0.4 ML SYR SC SCH ×2 (10:52→10:59)
[2018-03-27] MEDS: SULFAMETHOX/TMP 800/160 MG 1 TAB PO SCH ×2 (10:52→21:18)
[2018-03-27] MEDS: MUPIROCIN 2% 22 GM OINT TP SCH ×3 (10:53→21:19)
--- NOTE | 2018-03-27 11:36 | PCMIDPN ---
Assessment/Plan: Assessment: 57-year-old man with right great toe cellulitis and deep soft tissue infection with likely underlying acute to subacute osteomyelitis. New hyperkalemia likely side effect of Bactrim, will decrease dose to 1 double- strength tablet twice daily. His toe does not look course in her seems to be some softening of the skin in the medial aspect suggesting the inflammation is decreasing. No evidence for systemic infection. 1. Hyperkalemia, secondary to Bactrim 2. Right great toe acute subacute osteomyelitis, stable 3. Right great toe cellulitis and deep soft tissue infection 4. Hypoalbuminemia 5. Alcohol abuse 6. Homelessness Plan: 1. Decreased Bactrim 1 1 double-strength tablet twice daily 2. Continue to check potassium daily 3. Discussed in detail the role of antibiotics in attempting to avoid amputation and potential side effects of Bactrim which include hyperkalemia, increased creatinine, nausea, diarrhea Awais Lee MD Infectious Diseases 03/27/18 11:34 Subjective: No fever or chills. He gets night sweats in the hospital only not when he is outside the hospital. Right great toe is very tender which he states is unchanged from admission, not worse. No diarrhea or abdominal pain. Objective: Vital Signs Temp Pulse Resp BP Pulse Ox 36.8 C 62 14 150/98 H 96 03/27/18 08:00 03/27/18 08:00 03/27/18 08:00 03/27/18 08:00 03/27/18 08:00 Laboratory Results 03/26/18 04:11 03/27/18 04:39 03/26/18 03/27/18 03/28/18 05:59 05:59 05:59 Intake Total 2150 1500 Balance 2150 1500 ESR 12 MM/HR (0-20) 03/26/18 04:11 C-Reactive Protein < 5.0 mg/L (<10.0) 03/24/18 16:26 Laboratory Tests 03/24/18 03/26/18 03/26/18 16:26 04:11 04:11 WBC 5.40 4.21 Hgb 15.1 13.5 L Plt Count 298 231 Absolute Neuts (auto) 3.46 2.76 ESR 17 12 Potassium 4.3 Chloride 105 Creatinine 0.7 03/27/18 04:39 WBC Hgb Plt Count Absolute Neuts (auto) ESR Potassium 5.3 H Chloride Creatinine 0.9 - Physical Exam General Appearance: no apparent distress, thin, non-toxic EENT: No scleral icterus Neck: full range of motion, supple Skin: other (Right great toe is circumferential swelling, right great toe with circumferential swelling, no areas of drainage, tender to palpation, softening of the skin the medial aspect of the right great toe) Neuro/Psych: alert, normal mood/affect, oriented x 3, No confused - Time Spent With Patient Time Spent with Patient: greater than 25 minutes Time Spent with Patient: Greater than 25 minutes spent on this patients care, greater than 50% of time spent counseling, educating, and coordinating care regarding the above mentioned plan. ICD10 Worksheet Patient Problems: Problems Problem Status Onset Osteomyelitis Acute Multiple fractures of ribs of left side Acute Pneumonia Acute
--- NOTE | 2018-03-27 13:49 | SOAPPROG ---
SOAP Progress Note Assessment/Plan: 03/26/18 11:19 PAD# 2 Assessment: Complains of continued pain in foot. Erythema now extends proximally to metatarsal head. Will continue O2 sats at 98%, elevation and no nicotine Plan: Will continue O2 sats at 98%, elevation and no nicotine Follow up CBC, ESR, and foot x-ray pending 03/27/18 13:45 PAD#3 Assessment: ID input appreciated. Erythema is less extensive and stops at the metatarsal head. 1ST MT-P joint is raw stock drier tender. VSS, afebrile Plan: Continue non-op care in hopes of saving 1st ray. 03/27/18 13:49 Subjective: pain better in toe Objective: Vital Signs Temp Pulse Resp BP Pulse Ox 36.8 C 62 14 150/98 H 96 03/27/18 08:00 03/27/18 08:00 03/27/18 08:00 03/27/18 08:00 03/27/18 08:00 Laboratory Results 03/26/18 04:11 03/27/18 04:39 03/26/18 03/27/18 03/28/18 05:59 05:59 05:59 Intake Total 2150 1500 Balance 2150 1500 - Time Spent With Patient Time Spent With Patient: 15 Physical Exam - Physical Exam General Appearance: WD/WN, alert, no apparent distress Extremities: other (erythema that had extended up medial 1st ray has retreated distally to the level of the MT-P joint. Swelling less but raw stock drier tender) Neuro/Psych: no motor/sensory deficits, alert, normal mood/affect, oriented x 3 ICD10 Worksheet Patient Problems: Problems Problem Status Onset Osteomyelitis Acute Multiple fractures of ribs of left side Acute Pneumonia Acute
--- NOTE | 2018-03-27 14:25 | HOSPPROG ---
Hospitalist Progress Note Assessment/Plan: 57 yo homeless male with h/o etoh abuse presents to ED with right great toe pain and e/o osteomyelitis *Osteomyelitis (acute to subacute), r great toe -Dr Adorno removed his toenail, continued on bactrim, appreciate ID/general surgery, appears to be responding appropriately to treatment and will continue to monitor and hope to avoid surgery *H/O hypertension -prn Hydralazine if needed, bp has been relatively well controlled *Etoh abuse - denies h/o w/d or seizures. He does not wish to detox. -po beer daily to prevent w/d, currently doing well * transaminitis: mild, likely due to alc hep *Homelessness - CM consult *nausea and vomiting -resolved *nicotine dependence -patch ordered *DVT PPLX - Lovenox * IP status, dispo TBD, patient homeless Subjective: no significant overnight events, patient somnolent but denies any significant changes in his status, foot pain stable Objective: Vital Signs Temp Pulse Resp BP Pulse Ox 36.8 C 62 14 150/98 H 96 03/27/18 08:00 03/27/18 08:00 03/27/18 08:00 03/27/18 08:00 03/27/18 08:00 Laboratory Results 03/26/18 04:11 03/27/18 04:39 03/26/18 03/27/18 03/28/18 05:59 05:59 05:59 Intake Total 2150 1500 Balance 2150 1500 awake alert anicteric op clear rrr no mrg cta b soft nt nd no cce warm dry well perfused oriented ICD10 Worksheet Patient Problems: Problems Problem Status Onset Osteomyelitis Acute Multiple fractures of ribs of left side Acute Pneumonia Acute
[2018-03-27] MEDS: BEER 1 EACH EA PO SCH (20:39)
[2018-03-28] MEDS: ACETAMINOPHEN 325 MG TAB PO PRN ×3 (04:32→22:06)
--- NOTE | 2018-03-28 08:36 | HOSPPROG ---
Hospitalist Progress Note Assessment/Plan: 57 yo homeless male with h/o etoh abuse presents to ED with right great toe pain and e/o osteomyelitis *Osteomyelitis (acute to subacute), r great toe -Dr Adorno removed his toenail, continued on bactrim *H/O hypertension -prn Hydralazine if needed, bp has been relatively well controlled *Etoh abuse - denies h/o w/d or seizures. He does not wish to detox. -po beer daily to prevent w/d, currently doing well * transaminitis: mild, likely due to alc hep *nausea and vomiting -resolved *nicotine dependence -patch ordered *DVT PPLX - Lovenox * IP status, dispo TBD, patient homeless, will discuss w CM about some type of placement Subjective: syd said his toe is hurting Objective: Vital Signs Temp Pulse Resp BP Pulse Ox 36.5 C 59 L 18 126/76 H 100 03/27/18 23:22 03/27/18 23:22 03/27/18 23:22 03/27/18 23:22 03/27/18 23:22 Laboratory Results 03/26/18 04:11 03/28/18 04:30 03/27/18 03/28/18 03/29/18 05:59 05:59 05:59 Intake Total 1500 1900 Balance 1500 1900 - Physical Exam Constitutional: appears nourished, uncomfortable, unkempt Eyes: PERRL Ears, Nose, Mouth, Throat: hearing normal Cardiovascular: regular rate and rhythym Respiratory: no respiratory distress Gastrointestinal: normoactive bowel sounds Skin: warm Musculoskeletal: generalized weakness Neurologic: AAOx3 Psychiatric: not encephalopathic ICD10 Worksheet Patient Problems: Problems Problem Status Onset Osteomyelitis Acute Multiple fractures of ribs of left side Acute Pneumonia Acute
[2018-03-28] MEDS: SULFAMETHOX/TMP 800/160 MG 1 TAB PO SCH ×2 (09:09→22:05)
[2018-03-28] MEDS: ENOXAPARIN 40 MG/0.4 ML SYR SC SCH (09:09)
[2018-03-28] MEDS: MUPIROCIN 2% 22 GM OINT TP SCH ×3 (09:12→22:06)
--- NOTE | 2018-03-28 11:16 | PCMIDPN ---
Assessment/Plan: Assessment: Patient now admitting to this being a chronic frostbite injury. Patient notes that he was unconscious for 5 days ago from? Fall from a ladder? He states that when he woke up the right great toe was "frozen solid." Currently being managed on Bactrim for a potential secondary bacterial infection that I think the primary process here is frostbite. Plan: 1. Continue oral Bactrim at present dose. 2. Follow patient clinically. 3. Social issues and housing issues are overarching in this visit. 03/28/18 11:12 Subjective: Patient is resting in his hospital bed. His foot is propped up on pillows. He relates that his toe on the right foot is still extraordinarily painful in very sensitive to touch. He denies ability to walk. No fevers or chills. Objective: Bactrim # 2 Vital Signs Temp Pulse Resp BP Pulse Ox 36.6 C 64 14 138/77 H 99 03/28/18 08:00 03/28/18 08:00 03/28/18 08:00 03/28/18 08:00 03/28/18 08:00 Laboratory Results 03/26/18 04:11 03/28/18 04:30 03/27/18 03/28/18 03/29/18 05:59 05:59 05:59 Intake Total 1500 1900 Balance 1500 1900 ESR 12 MM/HR (0-20) 03/26/18 04:11 C-Reactive Protein < 5.0 mg/L (<10.0) 03/24/18 16:26 - Physical Exam General Appearance: WD/WN, alert, no apparent distress, non-toxic Respiratory: lungs clear, normal breath sounds, No respiratory distress Cardiac/Chest: regular rate, rhythm, No tachycardia Extremities: No non-tender, No normal inspection (Right great toe moderately swollen. Dusky appearance of overlying tissue. No bright erythema. No drainage. No ulcerations noted.) Skin: normal color, warm/dry, No rash Neuro/Psych: alert, normal mood/affect, oriented x 3 ICD10 Worksheet Patient Problems: Problems Problem Status Onset Osteomyelitis Acute Multiple fractures of ribs of left side Acute Pneumonia Acute
--- NOTE | 2018-03-28 12:10 | PDCONSULT ---
Packaging Line Attendant Note: PAD#[id number] Nothing further to add to the excellent care provided by ID and the Hospitalist service. I will sign off at this point
--- NOTE | 2018-03-28 15:16 | ASMTCMCOM ---
CM Note CM Note Notes: Pts case discussed w/ Edelmira Freeman NP. Pt had his toenail removed and continues to be on bactrim. Surgery is signing off. Pt is not interested in detoxing from etoh. CM available to reserve a snf bed and provide bus pass. CM made a referral to [facility]. No other needs at this time. CM available for changes. Plan: Independent Date Signed: 03/28/2018 03:16 PM Electronically Signed By:KRISTINA Conde
[2018-03-28] MEDS: IBUPROFEN 200 MG TAB PO PRN (20:22)
[2018-03-28] MEDS: BEER 1 EACH EA PO SCH (23:47)
[2018-03-29] MEDS: ACETAMINOPHEN 325 MG TAB PO PRN ×2 (07:28→17:50)
[2018-03-29] MEDS: IBUPROFEN 200 MG TAB PO PRN ×2 (10:54→21:28)
[2018-03-29] MEDS: MUPIROCIN 2% 22 GM OINT TP SCH ×3 (10:54→21:30)
[2018-03-29] MEDS: ENOXAPARIN 40 MG/0.4 ML SYR SC SCH (10:54)
[2018-03-29] MEDS: SULFAMETHOX/TMP 800/160 MG 1 TAB PO SCH ×2 (10:54→21:25)
--- NOTE | 2018-03-29 17:35 | HOSPPROG ---
Hospitalist Progress Note Assessment/Plan: 57 yo homeless male with h/o etoh abuse presents to ED with right great toe pain and e/o osteomyelitis *Osteomyelitis (acute to subacute), r great toe -Dr Adorno removed his toenail, continued on Bactrim -has an element of frostbite *H/O hypertension -prn Hydralazine if needed, bp has been relatively well controlled *Etoh abuse - denies h/o w/d or seizures. He does not wish to detox. -po beer daily to prevent w/d, currently doing well * transaminitis: mild, likely due to alc hep *nausea and vomiting -resolved *nicotine dependence -patch ordered *DVT PPLX - Lovenox *homelessness -spoke w CM and they will try and reserve a bed for Oc-he said [facility]. Will recheck a chemistry panel tomorrow Subjective: Oc says his toe hurts. Objective: Vital Signs Temp Pulse Resp BP Pulse Ox 36.6 C 67 16 147/77 H 95 03/29/18 15:35 03/29/18 15:35 03/29/18 15:35 03/29/18 15:35 03/29/18 15:35 Laboratory Results 03/26/18 04:11 03/28/18 04:30 03/28/18 03/29/18 03/30/18 05:59 05:59 05:59 Intake Total 1900 900 Balance 1900 900 - Physical Exam Constitutional: appears nourished, uncomfortable, unkempt Eyes: PERRL Ears, Nose, Mouth, Throat: hearing normal Cardiovascular: regular rate and rhythym Respiratory: no respiratory distress Skin: warm Musculoskeletal: generalized weakness Neurologic: AAOx3 Psychiatric: interacting appropriately ICD10 Worksheet Patient Problems: Problems Problem Status Onset Osteomyelitis Acute Multiple fractures of ribs of left side Acute Pneumonia Acute
--- NOTE | 2018-03-29 17:51 | PCMIDPN ---
Assessment/Plan: Assessment/Plan: * Right great toe infection/frostbite: Unclear how much MRI findings related to frostbite versus osteomyelitis although history more supportive of frostbite. Will continue oral Bactrim DS twice daily. Minimal residual skin and soft tissue infection present on exam. Duration of therapy will be dependent on compliance with Bactrim and outpatient follow-up after hospital discharge. 03/29/18 17:47 Subjective: Patient complains of right great toe pain which is intermittent. Overall decreased versus prior to initiation of antibiotic therapy. Objective: Vital Signs Temp Pulse Resp BP Pulse Ox 36.6 C 67 16 147/77 H 95 03/29/18 15:35 03/29/18 15:35 03/29/18 15:35 03/29/18 15:35 03/29/18 15:35 Laboratory Results 03/26/18 04:11 03/28/18 04:30 03/28/18 03/29/18 03/30/18 05:59 05:59 05:59 Intake Total 1900 900 Balance 1900 900 ESR 12 MM/HR (0-20) 03/26/18 04:11 C-Reactive Protein < 5.0 mg/L (<10.0) 03/24/18 16:26 Bactrim # 5 MRI of foot reviewed showing edema of right great toe distal phalanx without marked enhancement - Physical Exam General Appearance: alert, no apparent distress EENT: No scleral icterus Extremities: inflammation (Right great toe with partial loss of nail; mild erythema at base of toe; edema significantly decreased; no drainage; tender to palpation over tip of toe) Peripheral Pulses: 2+: dorsalis-pedis (R) (Posterior tibialis 2+) ICD10 Worksheet Patient Problems: Problems Problem Status Onset Osteomyelitis Acute Multiple fractures of ribs of left side Acute Pneumonia Acute
[2018-03-29] MEDS: BEER 1 EACH EA PO SCH (19:14)
[2018-03-30] MEDS: ACETAMINOPHEN 325 MG TAB PO PRN (06:27)
[2018-03-30 07:29] VITALS: BP 129/76
[2018-03-30] MEDS: ENOXAPARIN 40 MG/0.4 ML SYR SC SCH (09:06)
[2018-03-30] MEDS: SULFAMETHOX/TMP 800/160 MG 1 TAB PO SCH (09:07)
[2018-03-30] MEDS: MUPIROCIN 2% 22 GM OINT TP SCH ×2 (09:15→15:43)
--- NOTE | 2018-03-30 09:48 | PCMIDPN ---
Assessment/Plan: Assessment: 57-year-old man with right great toe cellulitis and deep soft tissue infection with likely underlying acute to subacute osteomyelitis. Right great toe swelling is improved from admission. No evidence for chronic osteomyelitis on imaging or by inflammatory marker elevation. Plan a 2 week course of Bactrim to ensure possible superinfection of with seems most likely to be deep soft tissue injury due to frostbite. He is tolerating Bactrim without complication. 1. Hyperkalemia, secondary to Bactrim; resolved 2. Right great toe acute to subacute osteomyelitis, stable 3. Right great toe cellulitis and deep soft tissue infection; improved 4. Hypoalbuminemia 5. Alcohol abuse 6. Homelessness Plan: 1. Continue Bactrim 1 double-strength tablet twice daily; stop date 04/07/2018 2. Reviewed in detail potential side effects of trimethoprim/sulfamethoxazole to include: allergy, rash, nausea, antibiotic-associated diarrhea, Clostridioides difficile colitis, increased creatinine, increased potassium. Awais Lee MD Infectious Diseases 03/30/18 09:46 Subjective: No fever or chills. Denies diarrhea, nausea, rash. Appetite normal. Minimal ambulation since admission. Pain in the right toe improved but continues to have acute pain throughout the day with some improvement after acetaminophen administration. Objective: Vital Signs Temp Pulse Resp BP Pulse Ox 36.7 C 55 L 18 129/76 H 100 03/30/18 07:29 03/30/18 07:29 03/30/18 07:29 03/30/18 07:29 03/30/18 07:29 Laboratory Results 03/26/18 04:11 03/30/18 04:22 03/29/18 03/30/18 03/31/18 05:59 05:59 05:59 Intake Total 900 350 Balance 900 350 ESR 12 MM/HR (0-20) 03/26/18 04:11 C-Reactive Protein < 5.0 mg/L (<10.0) 03/24/18 16:26 Laboratory Tests 03/24/18 03/26/18 03/28/18 16:26 04:11 04:30 WBC 5.40 4.21 Hgb 15.1 13.5 L Plt Count 298 231 Creatinine 0.8 03/30/18 04:22 WBC Hgb Plt Count Creatinine 0.7 Medications Generic Name Dose Route Start Last Admin Trade Name Tika PRN Reason Stop Dose Admin Trimethoprim/Sulfamethoxazole 1 ea 03/27/18 09:00 03/30/18 09:07 Bactrim Ds PO 04/26/18 08:59 1 ea BID [facility] Protocol Discontinued Medications Generic Name Dose Route Start Last Admin Trade Name Tika PRN Reason Stop Dose Admin Trimethoprim/Sulfamethoxazole 2 ea 03/25/18 13:30 03/26/18 23:08 Bactrim Ds PO 04/24/18 13:29 2 ea BID [facility] Protocol - Physical Exam General Appearance: no apparent distress, thin, non-toxic EENT: No scleral icterus Respiratory: No accessory muscle use Extremities: other (Right great toe with circumferential edema, mild tenderness to palpation, no areas of drainage) Abdomen: No distended Skin: No erythema Neuro/Psych: alert, normal mood/affect, oriented x 3, No confused ICD10 Worksheet Patient Problems: Problems Problem Status Onset Osteomyelitis Acute Multiple fractures of ribs of left side Acute Pneumonia Acute
--- NOTE | 2018-03-30 10:05 | ASMTCMCOM ---
CM Note CM Note Notes: Pt reports he is on a denial list with [facility] and [place] with BS confirms pt is on a "group home denial" list so pt will have to [facility]. Pt updated and he feels he will be ready to d/c tomorrow. Pt reports he has no friends/family to stay with. Saira with [facility] met with pt today. Pt may need bus pass and/or [facility] appointment at d/c. CM will follow. Date Signed: 03/30/2018 10:05 AM Electronically Signed By:VERONICA Davison
--- NOTE | 2018-03-30 13:16 | GDS ---
[f rep st] DISCHARGE SUMMARY DISCHARGE DIAGNOSES: 1. Osteomyelitis of the right great toe. 2. History of hypertension. 3. History of alcohol abuse. 4. Transaminitis. 5. Nausea and vomiting. 6. Nicotine dependency. 7. Homelessness. CONSULTATIONS: 1. Surgery surveillance system monitor. 2. Infectious Disease. STUDIES AND PROCEDURES: 1. Lower extremity MRI. 2. Foot x-ray. PHYSICAL EXAM: GENERAL: The patient is alert. VITAL SIGNS: Afebrile 36.7, pulse 55, respiratory r ate is 18, blood pressure is 129/67, saturating 100% on room air. I have seen and evaluated the patient on the day of discharge. HOSPITAL COURSE: The patient is a 57-year-old male who presented with complaints of right great toe pain. He was evaluated and diagnosed with. 1. Osteomyelitis of the right great toe. During this hospitalization, he received surgical interven tion. His toenail has been removed. He is treated with antibiotic therapy and will continue on Bact rim in the outpatient setting. He has been provided a prescription for Bactrim to be continued until 04/07/2018. 2. History of hypertension. His blood pressure has been well controlled during this hospitalization . 3. History of alcohol abuse. The patient does not wish the detox. Beer has been provided daily for the patient during this hospitalization. 4. Transaminitis. This is in the setting of chronic alcohol consumption. 5. Nausea and vomiting. This has resolved. 6. Nicotine dependency. Cessation education has been provided. 7. Homelessness. The patient will be discharged to the senior living. DISPOSITION: The patient will [facility]. This has been arranged b y Case Management. There are no pending studies. DISCHARGE MEDICATIONS: Please refer to EMR form. I have provided the patient a prescription for Srinath trim DS 1 p.o. twice daily, #16. Followup will be at [facility] as needed. TIME SPENT WITH PATIENT: I spent greater than 35 minutes in the care, coordination, and management o f the patient's disposition. /[id number]/MODL
--- NOTE | 2018-03-30 15:50 | ASMTCMCOM ---
CM Note CM Note Notes: Pt medically stable for d/c [facility], continue oral Bactrim until 04/07/18. Pt has [facility] f/u 04/04 at 0845. [place] cab arranged for 1700 to get pt to the [facility]. Of note: the previous CM note was from 03/29 it was not saved in [employer]. Date Signed: 03/30/2018 03:49 PM Electronically Signed By:VERONICA Davison
== END 2018-03-30 17:15 | disposition home or self-care (01) | DRG 344 ==
LOC: EDUNIT# → F3N 03-25 09:03
PROVIDERS: ADMIT Hospitalist; ATTEND Hospitalist
DX: M86.171 Other acute osteomyelitis, right ankle and foot (principal); F10.10 Alcohol abuse, uncomplicated; L03.031 Cellulitis of right toe; I10 Essential (primary) hypertension; F17.200 Nicotine dependence, unspecified, uncomplicated; Z59.0 Homelessness
CPT/HCPCS: 96365; A9585; J0295; J1650; J1885; J2270

== ENCOUNTER 2018-04-09 17:44 | Emergency (ER) | payer MEDICAID | END 2018-04-09 22:57 | disposition home or self-care (01) ==

== ENCOUNTER 2018-06-08 05:30 | Emergency (ER) | payer MEDICAID ==
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
[2018-06-08 06:48] VITALS: BP 101/65
== END 2018-06-08 07:15 | disposition home or self-care (01) ==
LOC: EDUNIT#
DX: S40.012A Contusion of left shoulder, initial encounter (principal); S80.11XA Contusion of right lower leg, initial encounter; F10.920 Alcohol use, unspecified with intoxication, uncomplicated; Y04.8XXA Assault by other bodily force, initial encounter; Z59.0 Homelessness

== ENCOUNTER 2018-06-17 23:05 | Emergency (ER) | payer MEDICAID ==
[2018-06-17 23:16] VITALS: BP 140/91
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
== END 2018-06-18 00:05 | disposition home or self-care (01) ==
LOC: EDUNIT#
DX: R23.8 Other skin changes (principal); I10 Essential (primary) hypertension; F10.10 Alcohol abuse, uncomplicated

== ENCOUNTER 2018-06-18 21:55 | Emergency (ER) | payer MEDICAID ==
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
[2018-06-18] MEDS ORDERED: CLOTRIMAZOLE 1% 15 GM CRTUBE TP SCH (22:45)
[2018-06-19 00:11] VITALS: BP 154/73
== END 2018-06-19 00:11 | disposition home or self-care (01) ==
LOC: EDUNIT#
DX: T69.021A Immersion foot, right foot, initial encounter (principal); T69.022A Immersion foot, left foot, initial encounter; F10.10 Alcohol abuse, uncomplicated; I10 Essential (primary) hypertension; F17.200 Nicotine dependence, unspecified, uncomplicated; X31.XXXA Exposure to excessive natural cold, initial encounter; Z59.0 Homelessness

== ENCOUNTER 2018-06-20 16:38 | Emergency (ER) | payer MEDICAID ==
--- NOTE | 2018-06-20 16:45 | EDPHY ---
H & P Time Seen by Provider: 06/20/18 16:42 HPI/ROS: CHIEF COMPLAINT: intoxication HISTORY OF PRESENT ILLNESS: Patient is a 58-year-old homeless alcoholic man who was found sleeping on the sidewalk. He tells us that he has drunken a gallon of whisky. He states that he laid down on the ground and did not fall. He denies any trauma or injury. He is brought here on an arc hold. Severity: Moderate Modifying factors: None REVIEW OF SYSTEMS: Unable to obtain secondary to condition Physical Exam General Appearance: Disheveled, no apparent distress, obtunded (But arousable with painful stimulation) EENT: PERRL/EOMI, normal ENT inspection, TMs normal, pharynx normal Neck: non-tender, full range of motion, supple, normal inspection Respiratory: chest non-tender, lungs clear, normal breath sounds Cardiac/Chest: normal peripheral pulses, regular rate, rhythm, P Peripheral Pulses: 2+: carotid (R), carotid (L), femoral (R), femoral (L), dorsalis-pedis (R), dorsalis-pedis (L) Abdomen: normal bowel sounds, non-tender, soft Extremities: normal range of motion, non-tender, normal inspection, normal capillary refill Neurological: calm, 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 No: alert (Somnolent) Appearance: appropriate appearance, appropriate insight, neat, denies illness Behavior/Eye Contact/Speech: cooperative, decreased rate of speech Thoughts/Hallucinations: normal thought pattern, no apparent hallucination Skin: normal color, warm/dry Source: Patient, EMS Exam Limitations: Intoxication - Personal History Tetanus Vaccine Date: <10 yrs - Medical/Surgical History Hx Asthma: No Hx Chronic Respiratory Disease: No Hx Diabetes: No Hx Cardiac Disease: No Hx Renal Disease: No Hx Cirrhosis: No Hx Alcoholism: Yes Hx HIV/AIDS: No Hx Splenectomy or Spleen Trauma: No Other PMH: chronic back pain, HTN, rib and r ankle fx 04/2017, ETOH ABUSE - Family History Significant Family History: No pertinent family hx - Social History Smoking Status: Current every day smoker Alcohol Use: Occasionally Drug Use: Marijuana Constitutional: Initial Vital Signs Temperature (C) 36.8 C 06/20/18 16:47 Heart Rate 78 06/20/18 16:47 Respiratory Rate 18 06/20/18 16:47 Blood Pressure 101/71 06/20/18 16:47 O2 Sat (%) 96 06/20/18 16:47 O2 Delivery Mode Room Air Allergies/Adverse Reactions: ARTIFICIAL ADRENALINE Allergy (Severe, Uncoded 06/20/18 21:07) SEIZURE Home Medications: Medication Instructions Recorded NK [No Known Home Meds] 06/17/18 Medical Decision Making ED Course/Re-evaluation: 6:40 p.m. Patient is ambulatory. We have called police to take him to the alcohol recovery Center. No sign of injury. Differential Diagnosis: Partial list of the Differential diagnosis considered include but were not limited to; intoxication, polysubstance abuse and although unlikely based on the history and physical exam, I also considered head injury, infection, trauma. - Data Points Medications Given: Discontinued Medications Chlordiazepoxide (Librium 25 Mg Prepack#6) 1 btl TAKEHOME EDNOW ONE Stop: 06/20/18 18:42 Last Admin: 06/20/18 19:02 Dose: 1 btl Departure - Departure Disposition: Home, Routine, Self-Care Clinical Impression: Alcoholic intoxication Qualifiers: Complication of substance-induced condition: uncomplicated Qualified Code(s): F10.920 - Alcohol use, unspecified with intoxication, uncomplicated Condition: Fair Instructions: Chlordiazepoxide (By mouth), Alcohol Intoxication (ED) Referrals: NONE *PRIMARY CARE P,. [Primary Care Provider] - As per Instructions [facility],. [Clinic] - As per Instructions
[2018-06-20] MEDS ORDERED: CHLORDIAZEPOXIDE 25MG PREPK#6 BTL TAKEHOME ONE (18:41)
[2018-06-20 19:50] VITALS: BP 106/72
== END 2018-06-20 19:55 | disposition home or self-care (01) ==
LOC: EDUNIT#
DX: F10.920 Alcohol use, unspecified with intoxication, uncomplicated (principal); I10 Essential (primary) hypertension; F17.200 Nicotine dependence, unspecified, uncomplicated; Z59.0 Homelessness

== ENCOUNTER 2018-06-20 21:04 | Emergency (ER) | payer MEDICAID ==
[2018-06-20 21:09] VITALS: BP 142/74
--- NOTE | 2018-06-20 21:10 | EDPHY ---
H & P Time Seen by Provider: 06/20/18 21:06 HPI/ROS: CHIEF COMPLAINT: Lice HISTORY OF PRESENT ILLNESS: Patient is a 58-year-old homeless alcoholic man who was seen here a few hours ago for intoxication. He was taken to the [facility] with Librium prepack. At the recovery Center they noticed that he had hair lice and sent him back here for treatment. Patient has no other complaints. Severity: None Modifying factors: None REVIEW OF SYSTEMS: Unable to obtain secondary to intoxication Physical Exam General Appearance: Disheveled, through D con shower. 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 alert Appearance: appropriate appearance, appropriate insight, neat, denies illness Behavior/Eye Contact/Speech: cooperative, decreased rate of speech Thoughts/Hallucinations: normal thought pattern, no apparent hallucination Skin: normal color, warm/dry Source: Patient, EMS Exam Limitations: Intoxication - Personal History Tetanus Vaccine Date: <10 yrs - Medical/Surgical History Hx Asthma: No Hx Chronic Respiratory Disease: No Hx Diabetes: No Hx Cardiac Disease: No Hx Renal Disease: No Hx Cirrhosis: No Hx Alcoholism: Yes Hx HIV/AIDS: No Hx Splenectomy or Spleen Trauma: No Other PMH: chronic back pain, HTN, rib and r ankle fx 04/2017, ETOH ABUSE - Family History Significant Family History: No pertinent family hx - Social History Smoking Status: Current every day smoker Alcohol Use: Heavy Drug Use: Marijuana Constitutional: Initial Vital Signs Temperature (C) 36.6 C 06/20/18 21:07 Heart Rate 74 06/20/18 21:07 Respiratory Rate 16 06/20/18 21:07 Blood Pressure 142/74 H 06/20/18 21:07 O2 Sat (%) 92 06/20/18 21:07 O2 Delivery Mode Room Air Allergies/Adverse Reactions: ARTIFICIAL ADRENALINE Allergy (Severe, Uncoded 06/20/18 21:07) SEIZURE Home Medications: Medication Instructions Recorded NK [No Known Home Meds] 06/17/18 Medical Decision Making ED Course/Re-evaluation: Patient was taken through the contamination shower. Will treat him with a single dose of ivermectin and release. Pharmacist involved. Differential Diagnosis: Partial list of the Differential diagnosis considered include but were not limited to; lice, intoxication, polysubstance abuse and although unlikely based on the history and physical exam, I also considered head injury, infection. - Data Points Medications Given: Discontinued Medications Ivermectin (Ivermectin) 27 mg PO EDNOW ONE Stop: 06/20/18 21:31 Last Admin: 06/20/18 21:33 Dose: 27 mg Departure - Departure Disposition: Home, Routine, Self-Care Clinical Impression: Lice infestation Alcoholic intoxication Qualifiers: Complication of substance-induced condition: uncomplicated Qualified Code(s): F10.920 - Alcohol use, unspecified with intoxication, uncomplicated Condition: Fair Instructions: Body Lice (ED) Referrals: NONE *PRIMARY CARE P,. [Primary Care Provider] - As per Instructions [facility],. [Clinic] - As per Instructions
[2018-06-20] MEDS: IVERMECTIN 3 MG TAB PO ONE ×2 (21:30→21:33)
== END 2018-06-20 21:35 | disposition home or self-care (01) ==
LOC: EDUNIT#
DX: B85.1 Pediculosis due to Pediculus humanus corporis (principal); F10.920 Alcohol use, unspecified with intoxication, uncomplicated; Z59.0 Homelessness

== ENCOUNTER 2018-07-05 00:32 | Emergency (ER) | payer MEDICAID ==
--- NOTE | 2018-07-05 00:40 | EDPHY ---
H & P Time Seen by Provider: 07/05/18 00:38 HPI/ROS: HPI CHIEF COMPLAINT: Alcohol Intoxication , medical clearance for snf HISTORY OF PRESENT ILLNESS: Patient is a 58-year-old male arrives to the emergency room by police and pleased handcuffs for medical clearance for snf. Arrives intoxicated with alcohol. He was found sleeping next to her [place]. It is noted that he has wet clothes. No evidence of trauma. Upon arrival to the emergency room is cursing at staff saying "fuck you fuck you guys, leave me the fuck alone" No visible trauma on exam. His wet clothes will be removed will check a core temperature. Past Medical History: Alcohol intoxication with daily alcohol use. Past Surgical History: No recent surgery. Social History: Homeless, daily alcohol use. Family History: Noncontributory ROS REVIEW OF SYSTEMS: 10 Systems were reviewed and negative with the exception of the elements mentioned in the history of present illness. Exam Constitutional disheveled, Intoxicated, triage nursing summary reviewed, vital signs reviewed, Sleepy, smells of alcohol Eyes normal conjunctivae and sclera, horizontal beating nystagmus consistent acute alcohol intoxication, otherwise pupils equal and react to light HENT normal inspection, atraumatic, moist mucus membranes, no epistaxis, neck supple/ no meningismus, no raccoon eyes. Respiratory clear to auscultation bilaterally, normal breath sounds, no respiratory distress, no wheezing. Cardiovascular rate normal, regular rhythm, no murmur, no edema, distal pulses normal. Gastrointestinal soft, non-tender, no rebound, no guarding, normal bowel sounds, no distension, no pulsatile mass. Genitourinary no CVA tenderness. Musculoskeletal no midline vertebral tenderness, full range of motion, no calf swelling, no tenderness of extremities, no meningismus, good pulses, neurovascularly intact. Skin pink, warm, & dry, no rash, skin atraumatic. Neurologic sleepy, intoxicated with alcohol,, alert and oriented x 3, AAOx3, moves all 4 extremities equally, motor intact, sensory intact, CN II-XII intact , , normal vision, normal speech. Psychiatric normal mood/affect. Heme/Lymph/Immune no lymphadenopathy. Differential Diagnosis: Includes but is not limited to in a particular order acute alcohol intoxication, alcohol abuse, dehydration, electrolyte abnormality , nausea vomiting from acute alcohol intoxication Medical Decision Making: Plan for this patient check core temperature, removed wet clothes. Re-evaluation: 12:39 a.m. patient toxication, smells of alcohol. Cursing at staff. Wet clothes have been removed. Core temp obtained. Temperature is 35 degrees. Will warm patient. 5:50 a.m. the patient slept here throughout the evening without any distress. He warmed up and has a normothermic temperature. Patient is sober nicely. He is stable gait. Safe for discharge. Source: Patient, Police, EMS Exam Limitations: Intoxication - Personal History Tetanus Vaccine Date: <10 yrs - Medical/Surgical History Hx Asthma: No Hx Chronic Respiratory Disease: No Hx Diabetes: No Hx Cardiac Disease: No Hx Renal Disease: No Hx Cirrhosis: No Hx Alcoholism: Yes Hx HIV/AIDS: No Hx Splenectomy or Spleen Trauma: No Other PMH: chronic back pain, HTN, rib and r ankle fx 04/2017, ETOH ABUSE - Social History Smoking Status: Current every day smoker Constitutional: Initial Vital Signs Temperature (C) 35.0 C L 07/05/18 00:49 Heart Rate 83 07/05/18 00:49 Respiratory Rate 14 07/05/18 00:49 Blood Pressure 125/61 H 07/05/18 00:49 O2 Sat (%) 95 07/05/18 00:49 O2 Delivery Mode Room Air Allergies/Adverse Reactions: ARTIFICIAL ADRENALINE Allergy (Severe, Uncoded 07/05/18 00:49) SEIZURE Home Medications: Medication Instructions Recorded NK [No Known Home Meds] 06/17/18 Departure - Departure Disposition: Home, Routine, Self-Care Clinical Impression: Alcoholic intoxication Qualifiers: Complication of substance-induced condition: uncomplicated Qualified Code(s): F10.920 - Alcohol use, unspecified with intoxication, uncomplicated Condition: Good Instructions: Alcohol Intoxication (ED), Abuse of Alcohol (ED) Referrals: NONE *PRIMARY CARE P,. [Primary Care Provider] - As per Instructions [facility],. [Clinic] - As per Instructions
[2018-07-05 05:16] VITALS: BP 94/54
== END 2018-07-05 06:03 | disposition home or self-care (01) ==
DX: F10.129 Alcohol abuse with intoxication, unspecified (principal); I10 Essential (primary) hypertension; Z59.0 Homelessness

== ENCOUNTER 2018-07-13 12:07 | Emergency (ER) | payer MEDICAID | END 2018-07-13 12:39 | disposition home or self-care (01) ==